=== PATIENT | male | born 1970 | race Caucasian/White ===

== ENCOUNTER 2018-07-10 18:48 | Emergency (ER) | payer MEDICAID ==
[~2018-07-10] VITALS: Ht 170.2 cm; Wt 80.0 kg
[~2018-07-10 18:48] MED LIST: ATEN-169 PO; BISA-155 PO; LISI-600 PO; POLY119P2 PO
[2018-07-10] MEDS ORDERED: acetaminophen 325mg tablet PO ONE (20:30)
[2018-07-10] MEDS ORDERED: azithromycin 250mg tablet PO ONE (22:00)
[2018-07-10] MEDS ORDERED: AZIT-63 PO (22:07)
[2018-07-10] MEDS ORDERED: IBUP-1984 PO (22:07)
[2018-07-10 22:14] VITALS: BP 165/99
== END 2018-07-10 22:15 | disposition home or self-care (01) ==
LOC: ER 18:49
DX: J18.9 Pneumonia, unspecified organism (principal); I10 Essential (primary) hypertension; Z86.14 Personal history of Methicillin resistant Staphylococcus aureus infection; F12.90 Cannabis use, unspecified, uncomplicated; Z79.899 Other long term (current) drug therapy; Z56.0 Unemployment, unspecified; Z60.2 Problems related to living alone
CPT/HCPCS: 71046; 87502; 87503; 99284

== ENCOUNTER 2019-01-25 11:10 | Inpatient (IN) | payer MEDICAID ==
[~2019-01-25] VITALS: Ht 170.2 cm; Wt 81.1 kg
[2019-01-25 13:09] LABS: CLARITY,URINE CLOUDY (Clear); COLOR,URINE YELLOW (Yellow); GLUCOSE, URINE 100 mg/dl (Neg); KETONES,URINE NEGATIVE (Neg); LEUKOCYTE ESTERASE ,URINE NEGATIVE (Neg); NITRITES, URINE NEGATIVE (Neg); OCCULT BLOOD,URINE LARGE (Neg); PROTEIN,URINE >=300 mg/dl (Neg); UROBILINOGEN,URINE 0.2 E.U/dL (0.2-1.0)
[2019-01-25 13:10] LABS: UA COLLECTION TYPE CLN CATCH MIDSTREAM
[2019-01-25 13:21] LABS: FINE GRANULAR CAST 0-3 /LPF (NEGATIVE)
[2019-01-25 13:22] LABS: RBC,URINE TNTC /HPF (0-2); WBC,URINE 0-4 /HPF (0-4)
[2019-01-25 13:23] LABS: BACTERIA,URINE 1+ /HPF (Neg); SQUAMOUS EPITHELIAL CELL,UR FEW /LPF (FEW)
[2019-01-25] MEDS ORDERED: normal saline 1000ML IV soln IVB ONE ×2 (14:05→16:20)
[2019-01-25] MEDS ORDERED: LORazepam 2 mg/ml vial IV ONE (14:05)
[2019-01-25] MEDS: nitroGLYCERIN 0.4mg SUBLingual tab SL PRN ×3 (14:17→14:35)
[2019-01-25 14:27] LABS: BASOPHILS % (AUTO) 0.6 % (0-1); EOSINOPHILS # (AUTO) 0.1 X10'3 (0-0.9); EOSINOPHILS % (AUTO) 1.3 % (0-6); HEMATOCRIT 38.5 % (42.0-52.0); HEMOGLOBIN 13.3 g/dl (14.0-17.9); LYMPHOCYTES # (AUTO) 0.8 X10'3 (1.1-4.8); LYMPHOCYTES % (AUTO) 10.9 % (21-51); MEAN CORPUSCULAR HEMOGLOBIN 28.8 PG (27.0-31.0); MEAN CORPUSCULAR HGB CONC 34.6 g/dL (33.0-36.5); MEAN CORPUSCULAR VOLUME 83.3 FL (78-98); MONOCYTES # (AUTO) 0.5 X10'3 (0-0.9); MONOCYTES % (AUTO) 6.4 % (2-12); NEUTROPHILS # (AUTO) 5.8 X10'3 (1.8-7.7); NEUTROPHILS % (AUTO) 80.8 % (42-75); PLATELET COUNT 203 X10'3 (140-440); RED BLOOD COUNT 4.62 X10'6 (4.70-6.10); RED CELL DISTRIBUTION WIDTH 15.4 % (11.5-14.5); WHITE BLOOD COUNT 7.2 X10'3 (4.5-11.0)
[2019-01-25 14:38] LABS: ALANINE AMINOTRANSFERASE 31 U/L (12-78); ALBUMIN 3.5 G/DL (3.4-5.0); ALBUMIN/GLOBULIN RATIO 0.9 (1.1-1.5); ALKALINE PHOSPHATASE 26 IU/L (46-116); ANION GAP 9 (8-16); ASPARTATE AMINO TRANSFERASE 28 U/L (10-37); BILIRUBIN,TOTAL 0.6 MG/DL (0.1-1.0); BLOOD UREA NITROGEN 43 MG/DL (7-18); BUN/CREATININE RATIO 15.1 (5.4-32.0); CHLORIDE 100 MMOL/L (99-107); CREATININE 2.85 MG/DL (0.60-1.10); GLUCOSE 143 MG/DL (70-104); LIPASE 373 U/L (73-393); POTASSIUM 3.5 MMOL/L (3.5-5.1); SODIUM 136 MMOL/L (135-145); TOTAL CARBON DIOXIDE 27.2 MMOL/L (24-32); TOTAL PROTEIN 7.2 G/DL (6.4-8.2); eGFR 24 ML/MIN
[2019-01-25] MEDS ORDERED: iohexol 350MG/ML 100ml bottle IV ONE (15:31)
[2019-01-25] MEDS ORDERED: labetalol 20mg/4ml (5mg/ml) syringe IV PRN (16:05)
[2019-01-25] MEDS ORDERED: acetaminophen 325mg tablet PO ONE (17:35)
[2019-01-25] MEDS ORDERED: NO HOME MEDS (17:38)
[2019-01-25] MEDS ORDERED: magnesium 4gm in 100ml NS 100 ML IV PRN (17:45)
[2019-01-25] MEDS ORDERED: potassium CL 10mEq/100ml bag 100 ML IV PRN ×2 (17:45)
[2019-01-25] MEDS ORDERED: magnesium Cl slow-release 64mg tablet PO PRN (17:45)
[2019-01-25] MEDS ORDERED: magnesium 2GM in 50ml NS 50 ML IV PRN (17:45)
[2019-01-25] MEDS ORDERED: HYDROcodone/acetaminophen 5mg/325mg tablet PO PRN (17:45)
[2019-01-25] MEDS ORDERED: morphine 2 MG/ML inj. syringe IV PRN ×2 (17:45)
[2019-01-25] MEDS ORDERED: ondansetron/PF 4mg/2ml inj IV PRN (17:45)
[2019-01-25] MEDS ORDERED: magnesium hydroxide 30ml (MOM) UD suspension PO PRN (17:45)
[2019-01-25] MEDS ORDERED: potassium Cl 20 mEq SR tablet PO PRN (17:45)
[2019-01-25] MEDS ORDERED: mag hydrox/Alum hydrox/simeth 30ml oral suspension PO PRN (17:45)
[2019-01-25] MEDS ORDERED: acetaminophen 325mg tablet PO PRN ×2 (17:45)
[2019-01-25] MEDS: normal saline 1000ml 1,000 ML IV SCH (18:57)
[2019-01-25] MEDS ORDERED: hyDRALAzine 10mg tablet PO PRN (19:55)
[2019-01-25] MEDS ORDERED: amLODIPine 5mg tablet PO ONE (19:55)
[2019-01-25 20:00] VITALS: BP 230/160
--- NOTE | 2019-01-25 20:00 | NUR ---
Patient in room PCU 3014. I have received report from Jossue BRIGGS and had the opportunity to ask questions and assume patient care.
[2019-01-25] MEDS: metoprolol tartrate 25mg tablet PO SCH (20:25)
[2019-01-25] MEDS: heparin, porcine 5000 units/ml vial SQ SCH (20:26)
--- NOTE | 2019-01-25 22:36 | NUR ---
pt Bp is 232/123 and still on the 200s since [address]. contacted Dr. Tompkins, he said he will put order in
[2019-01-25] MEDS: hydrALAZINE 20mg/ml inj. IV PRN (22:55)
[2019-01-25 23:00] VITALS: BP 223/139
[2019-01-25] MEDS: prazosin 5mg capsule PO SCH (23:30)
[2019-01-26] VITALS (8 sets, daily range): BP systolic 130–186; BP diastolic 69–113
[2019-01-26] MEDS: cloNIDine 0.1 mg tablet PO SCH ×4 (00:07→20:30)
[2019-01-26] MEDS: HYDROcodone/acetaminophen 10/325mg tab PO PRN ×3 (00:13→17:35)
[2019-01-26 00:36] LABS: SODIUM,URINE RANDOM 70 MEQ/L; URINE AMPHETAMINE SCREEN POSITIVE (Neg); URINE BARBITUATE SCREEN NEGATIVE (Neg); URINE BENZODIAZEPINES SCREEN NEGATIVE (Neg); URINE CANNABINOID SCREEN NEGATIVE (Neg); URINE COCAINE SCREEN NEGATIVE (Neg); URINE METHADONE SCREEN NEGATIVE (Neg); URINE OPIATE SCREEN NEGATIVE (Neg); URINE PHENCYCLIDINE SCREEN NEGATIVE (Neg)
[2019-01-26 00:42] LABS: TOTAL PROTEIN,URINE RANDOM 294.4 MG/DL
[2019-01-26 00:55] LABS: OSMOLALITY UA 408 MOSM/K (50-1400)
[2019-01-26] MEDS: normal saline 1000ml 1,000 ML IV SCH ×2 (03:42→17:17)
--- NOTE | 2019-01-26 06:00 | NUR ---
Patient in room PCU 3014. I have received report from Gala BRIGGS and had the opportunity to ask questions and assume patient care.
[2019-01-26 06:08] LABS: BASOPHILS % (AUTO) 0.2 % (0-1); EOSINOPHILS # (AUTO) 0.1 X10'3 (0-0.9); HEMATOCRIT 32.2 % (42.0-52.0); HEMOGLOBIN 11.3 g/dl (14.0-17.9); LYMPHOCYTES # (AUTO) 0.8 X10'3 (1.1-4.8); LYMPHOCYTES % (AUTO) 8.2 % (21-51); MEAN CORPUSCULAR HEMOGLOBIN 29.2 PG (27.0-31.0); MEAN CORPUSCULAR HGB CONC 35.1 g/dL (33.0-36.5); MEAN CORPUSCULAR VOLUME 83.1 FL (78-98); MEAN PLATELET VOLUME 7.5 FL (7.4-10.4); MONOCYTES # (AUTO) 0.5 X10'3 (0-0.9); NEUTROPHILS # (AUTO) 8.2 X10'3 (1.8-7.7); NEUTROPHILS % (AUTO) 85.6 % (42-75); PLATELET COUNT 204 X10'3 (140-440); RED BLOOD COUNT 3.88 X10'6 (4.70-6.10); RED CELL DISTRIBUTION WIDTH 15.5 % (11.5-14.5); WHITE BLOOD COUNT 9.5 X10'3 (4.5-11.0)
--- NOTE | 2019-01-26 06:15 | NUR ---
Problems reprioritized. Patient report given, questions answered & plan of care reviewed with Fortunato BRIGGS.
[2019-01-26 06:34] LABS: ANION GAP 11 (8-16); BLOOD UREA NITROGEN 43 MG/DL (7-18); BUN/CREATININE RATIO 16.9 (5.4-32.0); CALCIUM 7.9 MG/DL (8.5-10.1); CHLORIDE 103 MMOL/L (99-107); CREATININE 2.54 MG/DL (0.60-1.10); GLUCOSE 99 MG/DL (70-104); MAGNESIUM 1.9 MG/DL (1.5-2.4); POTASSIUM 3.2 MMOL/L (3.5-5.1); SODIUM 137 MMOL/L (135-145); eGFR 27 ML/MIN
[2019-01-26] MEDS: amLODIPine 5mg tablet PO SCH (07:40)
[2019-01-26] MEDS: potassium Cl 20 mEq SR tablet PO PRN ×3 (07:40→20:30)
[2019-01-26] MEDS: prazosin 5mg capsule PO SCH ×2 (07:40→20:22)
[2019-01-26] MEDS: metoprolol tartrate 25mg tablet PO SCH ×2 (07:41→20:31)
[2019-01-26] MEDS: heparin, porcine 5000 units/ml vial SQ SCH ×2 (07:42→20:22)
[2019-01-26] MEDS: K and/or MAG REPLACEMENT MC SCH (07:46)
--- NOTE | 2019-01-26 18:00 | NUR ---
Problems reprioritized. Patient report given, questions answered & plan of care reviewed with Marielle BRIGGS.
[2019-01-27] MEDS: hydrALAZINE 20mg/ml inj. IV PRN (02:44)
[2019-01-27 03:00] VITALS: BP 167/100
--- NOTE | 2019-01-27 03:40 | NUR ---
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 He is reporting disorientation and feelings of being "lost." Anxiety medication may be needed. LUIS Palomares [id number] Addendum: 01/27/19 at 0352 by Yahaira Weaver RN MD ppao roche
[2019-01-27] MEDS ORDERED: LORazepam 2 mg/ml vial IV PRN (03:45)
[2019-01-27] MEDS ORDERED: LORazepam 1 MG tablet PO PRN (03:45)
[2019-01-27 05:33] LABS: ALBUMIN 2.8 G/DL (3.4-5.0); ANION GAP 11 (8-16); BLOOD UREA NITROGEN 36 MG/DL (7-18); BUN/CREATININE RATIO 14.1 (5.4-32.0); CHLORIDE 105 MMOL/L (99-107); CREATININE 2.55 MG/DL (0.60-1.10); GLUCOSE 115 MG/DL (70-104); MAGNESIUM 1.8 MG/DL (1.5-2.4); POTASSIUM 3.8 MMOL/L (3.5-5.1); SODIUM 137 MMOL/L (135-145); TOTAL CARBON DIOXIDE 21.1 MMOL/L (24-32); eGFR 27 ML/MIN
[2019-01-27 06:00] VITALS: BP 165/97
--- NOTE | 2019-01-27 06:00 | NUR ---
Patient in room PCU 3014. I have received report from Marielle BRIGGS and had the opportunity to ask questions and assume patient care.
--- NOTE | 2019-01-27 06:03 | NUR ---
Problems reprioritized. Patient report given, questions answered & plan of care reviewed with BRIGITTE Farris.
[2019-01-27] MEDS: normal saline 1000ml 1,000 ML IV SCH (06:45)
[2019-01-27 07:00] LABS: BASOPHILS % (AUTO) 0.3 % (0-1); EOSINOPHILS # (AUTO) 0.1 X10'3 (0-0.9); HEMATOCRIT 29.4 % (42.0-52.0); HEMOGLOBIN 10.3 g/dl (14.0-17.9); LYMPHOCYTES # (AUTO) 0.8 X10'3 (1.1-4.8); LYMPHOCYTES % (AUTO) 11.7 % (21-51); MEAN CORPUSCULAR HEMOGLOBIN 29.1 PG (27.0-31.0); MEAN CORPUSCULAR VOLUME 83.1 FL (78-98); MEAN PLATELET VOLUME 7.9 FL (7.4-10.4); MONOCYTES # (AUTO) 0.4 X10'3 (0-0.9); MONOCYTES % (AUTO) 6.1 % (2-12); NEUTROPHILS # (AUTO) 5.3 X10'3 (1.8-7.7); NEUTROPHILS % (AUTO) 80.9 % (42-75); PLATELET COUNT 177 X10'3 (140-440); RED BLOOD COUNT 3.53 X10'6 (4.70-6.10); WHITE BLOOD COUNT 6.5 X10'3 (4.5-11.0)
[2019-01-27] MEDS: K and/or MAG REPLACEMENT MC SCH (08:00)
[2019-01-27] MEDS: amLODIPine 5mg tablet PO SCH (08:21)
[2019-01-27] MEDS: prazosin 5mg capsule PO SCH (08:22)
[2019-01-27] MEDS: cloNIDine 0.1 mg tablet PO SCH (08:22)
[2019-01-27] MEDS: metoprolol tartrate 25mg tablet PO SCH (08:23)
[2019-01-27] MEDS: heparin, porcine 5000 units/ml vial SQ SCH (08:23)
[2019-01-27 10:04] VITALS: BP 122/78
[2019-01-27] MEDS ORDERED: METO25TA6 PO (10:10)
[2019-01-27] MEDS ORDERED: PRAZ5CAP2 PO (10:10)
[2019-01-27] MEDS ORDERED: NOR5T PO (10:10)
[2019-01-27] MEDS ORDERED: CLON0.1T20 PO (10:10)
--- NOTE | 2019-01-27 11:04 | NUR ---
Patient discharged to home stable. Discharge instructions given verbally and written. Patient verbalized understanding. All personal belongings returned to patient. Tele box removed and returned to manager telemetry room. Prescriptions phoned to [facility] on [address] in [place], [place]. Patient awaiting ride home.
--- NOTE | 2019-01-27 11:43 | NUR ---
Patient unable to reach anyone for ride home. Patient given bus passes for transportation home. PIV removed canula intact. Patient wheeled out via w/c by staff to go home via bus.
== END 2019-01-27 11:42 | disposition home or self-care (01) | DRG 469 ==
LOC: ER 13:37 → PCU 3S 17:42
PROVIDERS: ADMIT Hospitalist; ATTEND Hospitalist
DX: N17.9 Acute kidney failure, unspecified (principal); F17.210 Nicotine dependence, cigarettes, uncomplicated; I16.0 Hypertensive urgency; R31.9 Hematuria, unspecified; N18.9 Chronic kidney disease, unspecified; I25.10 Atherosclerotic heart disease of native coronary artery without angina pectoris; I12.9 Hypertensive chronic kidney disease with stage 1 through stage 4 chronic kidney disease, or unspecified chronic kidney disease; Z90.49 Acquired absence of other specified parts of digestive tract; Z82.49 Family history of ischemic heart disease and other diseases of the circulatory system; Z86.14 Personal history of Methicillin resistant Staphylococcus aureus infection; Z87.442 Personal history of urinary calculi
CPT/HCPCS: 36415; 71250; 74176; 80048; 80053; 80305; 81001; 82570; 83690; 83735; 83935; 84156; 84300; 85025; 87081; 93306; 96361; 96374; 96375; 99285; G0378; J0360; J1644; J2060; J2270; J3490; J7030; Q9967

== ENCOUNTER 2019-04-23 11:02 | Inpatient (IN) | payer MEDICAID ==
[2019-04-23] VITALS (9 sets, daily range): BP systolic 127–152; BP diastolic 67–94
[~2019-04-23] VITALS: Ht 170.2 cm; Wt 81.0 kg
[~2019-04-23 11:02] MED LIST changes: -ATEN-169 PO; -BISA-155 PO; +CLON0.1T20 PO; -LISI-600 PO; +METO25TA6 PO; +NOR5T PO; -POLY119P2 PO; +PRAZ5CAP2 PO
--- NOTE | 2019-04-23 11:43 | NUR ---
DR VELARDE NOTIFIED OF PT'S HYPERTENSION.
[2019-04-23] MEDS ORDERED: AMLO10TA PO (12:05)
[2019-04-23] MEDS ORDERED: PRAZ5CAP2 PO (12:05)
[2019-04-23] MEDS ORDERED: CLON0.1T PO ×2 (12:05→13:18)
[2019-04-23] MEDS ORDERED: METO-395 PO (12:05)
[2019-04-23] MEDS ORDERED: hydrALAZINE 20mg/ml inj. IV ONE ×2 (12:05→12:45)
--- NOTE | 2019-04-23 12:19 | NUR ---
PT TO CT VIA GIDEON, BY PLANT OPERATIONS WORKER EMMIE.
[2019-04-23 12:24] LABS: BASOPHILS % (AUTO) 0.6 % (0-1); EOSINOPHILS # (AUTO) 0.1 X10'3 (0-0.9); EOSINOPHILS % (AUTO) 1.6 % (0-6); HEMATOCRIT 37.4 % (42.0-52.0); LYMPHOCYTES % (AUTO) 15.4 % (21-51); MEAN CORPUSCULAR HEMOGLOBIN 28.2 PG (27.0-31.0); MEAN CORPUSCULAR HGB CONC 34.6 g/dL (33.0-36.5); MEAN CORPUSCULAR VOLUME 81.4 FL (78-98); MEAN PLATELET VOLUME 7.1 FL (7.4-10.4); MONOCYTES # (AUTO) 0.4 X10'3 (0-0.9); MONOCYTES % (AUTO) 6.6 % (2-12); NEUTROPHILS # (AUTO) 4.9 X10'3 (1.8-7.7); NEUTROPHILS % (AUTO) 75.8 % (42-75); PLATELET COUNT 195 X10'3 (140-440); RED BLOOD COUNT 4.59 X10'6 (4.70-6.10); RED CELL DISTRIBUTION WIDTH 15.8 % (11.5-14.5); WHITE BLOOD COUNT 6.5 X10'3 (4.5-11.0)
--- NOTE | 2019-04-23 12:33 | NUR ---
PT BACK FROM CT
[2019-04-23 12:35] LABS: ALANINE AMINOTRANSFERASE 35 U/L (12-78); ALBUMIN 3.6 G/DL (3.4-5.0); ALBUMIN/GLOBULIN RATIO 0.9 (1.1-1.5); ALKALINE PHOSPHATASE 32 IU/L (46-116); ANION GAP 12 (8-16); ASPARTATE AMINO TRANSFERASE 30 U/L (10-37); BILIRUBIN,TOTAL 0.5 MG/DL (0.1-1.0); BLOOD UREA NITROGEN 61 MG/DL (7-18); BUN/CREATININE RATIO 17.4 (5.4-32.0); CALCIUM 9.3 MG/DL (8.5-10.1); CHLORIDE 103 MMOL/L (99-107); GLUCOSE 86 MG/DL (70-104); POTASSIUM 4.4 MMOL/L (3.5-5.1); SODIUM 140 MMOL/L (135-145); TOTAL CARBON DIOXIDE 24.9 MMOL/L (24-32); TOTAL PROTEIN 7.5 G/DL (6.4-8.2); eGFR 19 ML/MIN
[2019-04-23] MEDS ORDERED: acetaminophen 325mg tablet PO ONE (12:55)
--- NOTE | 2019-04-23 13:11 | NUR ---
PT GIVEN 2 ICE PACKS FOR PT'S NECK. PT R EPORTS HEADACHE 02/24.
[2019-04-23] MEDS ORDERED: AMLO5TAB PO (13:18)
[2019-04-23] MEDS ORDERED: PRAZ5CAP PO (13:19)
[2019-04-23] MEDS ORDERED: METO25TA6 PO (13:19)
[2019-04-23] MEDS ORDERED: niCARdipine I.V. 50 MG in normal saline 250ml IV soln 230 ML IV SCH ×2 (13:20→13:25)
--- NOTE | 2019-04-23 13:22 | NUR ---
PT CO NOT FEELING WELL, PER DR MADRID STAT EKG.
[2019-04-23] MEDS ORDERED: morphine 2 MG/ML inj. syringe IV PRN (13:25)
[2019-04-23] MEDS ORDERED: magnesium hydroxide 30ml (MOM) UD suspension PO PRN (13:25)
[2019-04-23] MEDS ORDERED: potassium CL 10mEq/100ml bag 100 ML IV PRN ×2 (13:25)
[2019-04-23] MEDS ORDERED: morphine 4 MG/ML inj SYRINge IV PRN (13:25)
[2019-04-23] MEDS ORDERED: HYDROcodone/acetaminophen 10/325mg tab PO PRN (13:25)
[2019-04-23] MEDS ORDERED: ondansetron/PF 4mg/2ml inj IV PRN (13:25)
[2019-04-23] MEDS ORDERED: potassium Cl 20 mEq SR tablet PO PRN ×2 (13:25)
[2019-04-23] MEDS ORDERED: acetaminophen 325mg tablet PO PRN ×2 (13:25)
[2019-04-23] MEDS ORDERED: niCARDipine-NS 40mg/200ml IVPB 250 ML IV SCH (13:30)
[2019-04-23] MEDS: niCARDipine-NS 40mg/200ml IVPB 200 ML IV SCH ×2 (13:38→17:58)
[2019-04-23 14:48] LABS: CLARITY,URINE CLEAR (Clear); COLOR,URINE YELLOW (Yellow); GLUCOSE, URINE NEGATIVE (Neg); KETONES,URINE NEGATIVE (Neg); LEUKOCYTE ESTERASE ,URINE NEGATIVE (Neg); NITRITES, URINE NEGATIVE (Neg); OCCULT BLOOD,URINE NEGATIVE (Neg); PROTEIN,URINE >=300 mg/dl (Neg); UA COLLECTION TYPE URINAL; UROBILINOGEN,URINE 0.2 E.U/dL (0.2-1.0)
[2019-04-23 14:55] LABS: COARSE GRANULAR CAST 0-3 /LPF (NEGATIVE); FINE GRANULAR CAST 0-3 /LPF (NEGATIVE); HYALINE CASTS 0-3 /LPF (NEGATIVE); MUCUS STRANDS NONE SEEN /LPF (Neg); RENAL CELLS, URINE FEW /HPF; SQUAMOUS EPITHELIAL CELL,UR FEW /LPF (FEW); TRANSITIONAL EPI CELLS,URINE FEW /HPF
[2019-04-23 14:56] LABS: TOTAL PROTEIN,URINE RANDOM 495.1 MG/DL
[2019-04-23 14:57] LABS: BACTERIA,URINE NONE SEEN /HPF (Neg); RBC,URINE 0-2 /HPF (0-2); WBC,URINE 0-4 /HPF (0-4)
[2019-04-23] MEDS ORDERED: aspirin 81mg tab.chew PO ONE (15:15)
[2019-04-23 15:48] LABS: UA EOSINOPHILS NO EOS /HPF
[2019-04-23] MEDS: amLODIPine 5mg tablet PO SCH (17:17)
--- NOTE | 2019-04-23 18:31 | NUR ---
Patient in room ICU 2038. I have received report from Ame May RN and had the opportunity to ask questions and assume patient care.
[2019-04-23] MEDS ORDERED: heparin, porcine 5000 units/ml vial SQ SCH (20:00)
[2019-04-23] MEDS: metoprolol tartrate 25mg tablet PO SCH (20:10)
[2019-04-23] MEDS: cloNIDine 0.1 mg tablet PO SCH (20:10)
[2019-04-23] MEDS ORDERED: heparin 10,000 units/1 ML INJ IV ONE (20:30)
[2019-04-23] MEDS ORDERED: nitroGLYCERIN 0.4mg SUBLingual tab SL PRN (20:40)
[2019-04-23] MEDS: heparin 25,000 UNIT/250ml bag 250 ML IV SCH (21:10)
[2019-04-23] MEDS: prazosin 5mg capsule PO SCH (21:53)
[2019-04-24] VITALS (23 sets, daily range): BP systolic 120–182; BP diastolic 74–115
[2019-04-24 03:26] LABS: ALANINE AMINOTRANSFERASE 36 U/L (12-78); ALBUMIN 3.2 G/DL (3.4-5.0); ALBUMIN/GLOBULIN RATIO 0.9 (1.1-1.5); ALKALINE PHOSPHATASE 21 IU/L (46-116); ANION GAP 15 (8-16); ASPARTATE AMINO TRANSFERASE 50 U/L (10-37); BILIRUBIN,TOTAL 0.5 MG/DL (0.1-1.0); BLOOD UREA NITROGEN 63 MG/DL (7-18); BUN/CREATININE RATIO 16.7 (5.4-32.0); CALCIUM 8.6 MG/DL (8.5-10.1); CHLORIDE 104 MMOL/L (99-107); CREATININE 3.78 MG/DL (0.60-1.10); GLUCOSE 121 MG/DL (70-104); POTASSIUM 3.9 MMOL/L (3.5-5.1); SODIUM 141 MMOL/L (135-145); TOTAL CARBON DIOXIDE 21.9 MMOL/L (24-32); TOTAL PROTEIN 6.6 G/DL (6.4-8.2); eGFR 17 ML/MIN
[2019-04-24 04:13] LABS: BASOPHILS % (AUTO) 0.3 % (0-1); EOSINOPHILS # (AUTO) 0.1 X10'3 (0-0.9); EOSINOPHILS % (AUTO) 0.9 % (0-6); HEMATOCRIT 34.3 % (42.0-52.0); LYMPHOCYTES # (AUTO) 0.9 X10'3 (1.1-4.8); LYMPHOCYTES % (AUTO) 14.2 % (21-51); MEAN CORPUSCULAR HEMOGLOBIN 28.4 PG (27.0-31.0); MEAN CORPUSCULAR VOLUME 81.2 FL (78-98); MEAN PLATELET VOLUME 7.6 FL (7.4-10.4); MONOCYTES # (AUTO) 0.3 X10'3 (0-0.9); NEUTROPHILS # (AUTO) 4.9 X10'3 (1.8-7.7); NEUTROPHILS % (AUTO) 79.6 % (42-75); PLATELET COUNT 172 X10'3 (140-440); RED BLOOD COUNT 4.23 X10'6 (4.70-6.10); RED CELL DISTRIBUTION WIDTH 15.5 % (11.5-14.5); WHITE BLOOD COUNT 6.1 X10'3 (4.5-11.0)
[2019-04-24 04:19] LABS: ALANINE AMINOTRANSFERASE 36 U/L (12-78); ALBUMIN 3.2 G/DL (3.4-5.0); ALBUMIN/GLOBULIN RATIO 0.9 (1.1-1.5); ALKALINE PHOSPHATASE 24 IU/L (46-116); ANION GAP 12 (8-16); ASPARTATE AMINO TRANSFERASE 52 U/L (10-37); BILIRUBIN,TOTAL 0.5 MG/DL (0.1-1.0); BLOOD UREA NITROGEN 63 MG/DL (7-18); BUN/CREATININE RATIO 16.4 (5.4-32.0); CALCIUM 8.7 MG/DL (8.5-10.1); CHLORIDE 104 MMOL/L (99-107); CREATININE 3.83 MG/DL (0.60-1.10); GLUCOSE 123 MG/DL (70-104); MAGNESIUM 2.2 MG/DL (1.5-2.4); SODIUM 139 MMOL/L (135-145); TOTAL CARBON DIOXIDE 23.2 MMOL/L (24-32); TOTAL PROTEIN 6.7 G/DL (6.4-8.2); eGFR 17 ML/MIN
[2019-04-24] MEDS: heparin 10,000 units/1 ML INJ IV PRN ×2 (04:31→17:04)
--- NOTE | 2019-04-24 06:10 | NUR ---
Patient in room ICU 2038. I have received report from BRIGITTE Montoya and had the opportunity to ask questions and assume patient care.
--- NOTE | 2019-04-24 06:43 | NUR ---
Problems reprioritized. Patient report given, questions answered & plan of care reviewed with Ginger Pritchard RN.
--- NOTE | 2019-04-24 06:48 | NUR ---
Patient in room ICU 2038. I have received report from BRIGITTE Montoya and had the opportunity to ask questions and assume patient care.
[2019-04-24] MEDS: aspirin 81mg tablet.DR PO SCH (07:39)
[2019-04-24] MEDS: amLODIPine 5mg tablet PO SCH (07:39)
[2019-04-24] MEDS: metoprolol tartrate 25mg tablet PO SCH (07:39)
[2019-04-24] MEDS: prazosin 5mg capsule PO SCH (07:39)
[2019-04-24] MEDS: cloNIDine 0.1 mg tablet PO SCH ×3 (07:39→18:56)
[2019-04-24] MEDS ORDERED: amLODIPine 5mg tablet PO SCH (08:00)
--- NOTE | 2019-04-24 10:00 | NUR ---
PTT 54 *Therapeutic Range* No change to heparin drip at this time. Addendum: 04/24/19 at 1222 by Sapna Juares RN PTT is 52; not 54 (Typo)
[2019-04-24 10:31] LABS: TROPONIN I 6.94 NG/ML (0.0-0.05)
--- NOTE | 2019-04-24 10:45 | NUR ---
Most recent Troponin 6.94, MD aware. Per Dr. Ac, patients SBP needs to stay between 160-180. New orders in place.
[2019-04-24 11:02] LABS: CHOL/HDL RATIO 4.3 (0.00-4.99); CHOLESTEROL 213 MG/DL (0-200); HDL CHOLESTEROL 49 MG/DL (35-60); LDL CHOLESTEROL 143 MG/DL (50-100); TRIGLYCERIDES 122 MG/DL (20-135)
--- NOTE | 2019-04-24 11:32 | NUR ---
Spoke with pharmacy. Parameters of Cardene were clarified and fixed in eMAR.
[2019-04-24] MEDS: niCARDipine-NS 40mg/200ml IVPB 200 ML IV SCH (13:25)
[2019-04-24] MEDS: heparin 25,000 UNIT/250ml bag 250 ML IV SCH ×3 (17:09→19:00)
--- NOTE | 2019-04-24 17:36 | NUR ---
IV spreadsheet, Heparin Drip @ 1709 is an invalid entry. 10ml/hr was never administered. Spoke with pharmacy, they discontinued medication order and re-entered the same medication as new to bypass error on IV spreadsheet. Patient received 3500 unit bolus, per protocol and is receiving 1400 unit/hr
--- NOTE | 2019-04-24 18:14 | NUR ---
Problems reprioritized. Patient report given, questions answered & plan of care reviewed with BRIGITTE De Los Santos.
--- NOTE | 2019-04-24 18:32 | NUR ---
Patient in room ICU 2038. I have received report from Ginger Pritchard RN and had the opportunity to ask questions and assume patient care.
--- NOTE | 2019-04-24 23:47 | NUR ---
PTT in therapeutic range heparin is currently running at 1400 u/hr and labs drawn at 2254 were 46 PTT. will continue at current rate and place order for re-draw per protocol for 6 hours.
[2019-04-25] VITALS (24 sets, daily range): BP systolic 140–194; BP diastolic 81–123
--- NOTE | 2019-04-25 01:24 | NUR ---
offered pt bed bath, pt refused.
[2019-04-25] MEDS: niCARDipine-NS 40mg/200ml IVPB 200 ML IV SCH ×4 (05:25→16:24)
[2019-04-25 06:37] LABS: BASOPHILS % (AUTO) 0.3 % (0-1); EOSINOPHILS # (AUTO) 0.1 X10'3 (0-0.9); EOSINOPHILS % (AUTO) 2.1 % (0-6); HEMATOCRIT 34.5 % (42.0-52.0); LYMPHOCYTES # (AUTO) 1.2 X10'3 (1.1-4.8); LYMPHOCYTES % (AUTO) 23.7 % (21-51); MEAN CORPUSCULAR HEMOGLOBIN 28.3 PG (27.0-31.0); MEAN CORPUSCULAR HGB CONC 34.8 g/dL (33.0-36.5); MEAN CORPUSCULAR VOLUME 81.2 FL (78-98); MEAN PLATELET VOLUME 7.5 FL (7.4-10.4); MONOCYTES # (AUTO) 0.4 X10'3 (0-0.9); MONOCYTES % (AUTO) 7.8 % (2-12); NEUTROPHILS # (AUTO) 3.4 X10'3 (1.8-7.7); NEUTROPHILS % (AUTO) 66.1 % (42-75); PLATELET COUNT 202 X10'3 (140-440); RED BLOOD COUNT 4.25 X10'6 (4.70-6.10); RED CELL DISTRIBUTION WIDTH 15.4 % (11.5-14.5); WHITE BLOOD COUNT 5.1 X10'3 (4.5-11.0)
--- NOTE | 2019-04-25 06:48 | NUR ---
Problems reprioritized. Patient report given, questions answered & plan of care reviewed with Jyotsna Gilliam RN.
[2019-04-25 06:56] LABS: ALANINE AMINOTRANSFERASE 37 U/L (12-78); ALBUMIN 3.2 G/DL (3.4-5.0); ALBUMIN/GLOBULIN RATIO 0.8 (1.1-1.5); ALKALINE PHOSPHATASE 23 IU/L (46-116); ANION GAP 12 (8-16); ASPARTATE AMINO TRANSFERASE 47 U/L (10-37); BILIRUBIN,TOTAL 0.3 MG/DL (0.1-1.0); BLOOD UREA NITROGEN 60 MG/DL (7-18); BUN/CREATININE RATIO 16.3 (5.4-32.0); CALCIUM 9.2 MG/DL (8.5-10.1); CHLORIDE 101 MMOL/L (99-107); CREATININE 3.67 MG/DL (0.60-1.10); GLUCOSE 91 MG/DL (70-104); MAGNESIUM 2.5 MG/DL (1.5-2.4); POTASSIUM 3.6 MMOL/L (3.5-5.1); SODIUM 137 MMOL/L (135-145); TOTAL CARBON DIOXIDE 24.5 MMOL/L (24-32); eGFR 18 ML/MIN
[2019-04-25 07:05] LABS: TROPONIN I 4.65 NG/ML (0.0-0.05)
[2019-04-25] MEDS: atorvastatin 20mg tablet PO SCH (07:51)
[2019-04-25] MEDS: aspirin 81mg tablet.DR PO SCH (07:53)
[2019-04-25] MEDS: cloNIDine 0.1 mg tablet PO SCH ×3 (07:53→19:39)
[2019-04-25] MEDS ORDERED: lisinopril 10 MG tablet PO ONE (12:45)
--- NOTE | 2019-04-25 14:09 | NUR ---
Reviewed orders and POC with Lizbet and he requested that the heparin drip be stopped and start the sub q 5000 units daily instead, also started a loading one time dose of 300mg plavix starting this evening and then a daily 75 mg dose from there. He also requested the patient start a coreg dose of 6.25mg daily.
[2019-04-25 14:31] LABS: RHEUM FACTOR QUAL REFLEX TITER NEGATIVE (Neg)
[2019-04-25 15:37] LABS: HIV ANTIBODY 1&2 RAPID NON-REACTIVE (Neg)
[2019-04-25] MEDS ORDERED: clopidogrel 300mg tablet PO ONE (19:00)
[2019-04-25] MEDS: heparin, porcine 5000 units/ml vial SQ SCH (19:40)
[2019-04-25] MEDS ORDERED: carVEDilol 3.125mg tablet PO SCH (20:00)
[2019-04-25] MEDS ORDERED: carvedilol 6.25mg tablet PO ONE (20:00)
[2019-04-25] MEDS ORDERED: carVEDilol 12.5mg tablet PO SCH (20:00)
[2019-04-26] VITALS (19 sets, daily range): BP systolic 123–166; BP diastolic 79–109
--- NOTE | 2019-04-26 03:14 | NUR ---
Patient reported 5/10 chest pain, relieved with one nitro tab. 12 lead EKG done, no change from previous. Vitals WNL
[2019-04-26 05:12] LABS: BASOPHILS % (AUTO) 0.2 % (0-1); EOSINOPHILS # (AUTO) 0.1 X10'3 (0-0.9); EOSINOPHILS % (AUTO) 1.7 % (0-6); HEMATOCRIT 31.3 % (42.0-52.0); HEMOGLOBIN 10.7 g/dl (14.0-17.9); LYMPHOCYTES # (AUTO) 0.8 X10'3 (1.1-4.8); LYMPHOCYTES % (AUTO) 17.7 % (21-51); MEAN CORPUSCULAR HEMOGLOBIN 28.3 PG (27.0-31.0); MEAN CORPUSCULAR HGB CONC 34.3 g/dL (33.0-36.5); MEAN CORPUSCULAR VOLUME 82.6 FL (78-98); MEAN PLATELET VOLUME 7.2 FL (7.4-10.4); MONOCYTES # (AUTO) 0.4 X10'3 (0-0.9); MONOCYTES % (AUTO) 8.5 % (2-12); NEUTROPHILS # (AUTO) 3.2 X10'3 (1.8-7.7); NEUTROPHILS % (AUTO) 71.9 % (42-75); PLATELET COUNT 191 X10'3 (140-440); RED BLOOD COUNT 3.79 X10'6 (4.70-6.10); RED CELL DISTRIBUTION WIDTH 15.1 % (11.5-14.5); WHITE BLOOD COUNT 4.4 X10'3 (4.5-11.0)
[2019-04-26] MEDS: niCARDipine-NS 40mg/200ml IVPB 200 ML IV SCH (05:25)
[2019-04-26 05:34] LABS: ALANINE AMINOTRANSFERASE 30 U/L (12-78); ALBUMIN 2.9 G/DL (3.4-5.0); ALBUMIN/GLOBULIN RATIO 0.9 (1.1-1.5); ALKALINE PHOSPHATASE 21 IU/L (46-116); ANION GAP 9 (8-16); ASPARTATE AMINO TRANSFERASE 27 U/L (10-37); BILIRUBIN,TOTAL 0.3 MG/DL (0.1-1.0); BLOOD UREA NITROGEN 60 MG/DL (7-18); BUN/CREATININE RATIO 16.5 (5.4-32.0); CALCIUM 8.3 MG/DL (8.5-10.1); CHLORIDE 104 MMOL/L (99-107); CREATININE 3.63 MG/DL (0.60-1.10); GLUCOSE 102 MG/DL (70-104); MAGNESIUM 2.1 MG/DL (1.5-2.4); PHOSPHORUS 5.5 MG/DL (2.3-4.5); POTASSIUM 4.3 MMOL/L (3.5-5.1); SODIUM 138 MMOL/L (135-145); TOTAL CARBON DIOXIDE 24.8 MMOL/L (24-32); TOTAL PROTEIN 6.2 G/DL (6.4-8.2); eGFR 18 ML/MIN
--- NOTE | 2019-04-26 06:38 | NUR ---
Patient in room ICU 2038. I have received report from BRIGITTE Higuera and had the opportunity to ask questions and assume patient care.
[2019-04-26] MEDS: lisinopril 5mg tablet PO SCH (07:12)
[2019-04-26] MEDS: aspirin 81mg tablet.DR PO SCH (07:13)
[2019-04-26] MEDS: cloNIDine 0.1 mg tablet PO SCH ×2 (07:13→19:48)
[2019-04-26] MEDS: clopidogrel 75mg tablet PO SCH (07:13)
[2019-04-26] MEDS: atorvastatin 20mg tablet PO SCH (07:13)
[2019-04-26] MEDS: heparin, porcine 5000 units/ml vial SQ SCH ×2 (07:13→19:49)
[2019-04-26] MEDS ORDERED: carVEDilol 12.5mg tablet PO SCH (08:00)
[2019-04-26] MEDS ORDERED: aminophylline 250mg/10ml inj. IV PRN (13:35)
[2019-04-26] MEDS ORDERED: metoprolol tartrate 1mg/ml inj IV PRN (13:35)
[2019-04-26] MEDS ORDERED: nitroGLYCERIN 0.4mg SUBLingual tab SL PRN (13:35)
[2019-04-26] MEDS ORDERED: regadenoson 0.4mg/5ml syringe IV PRN (13:35)
--- NOTE | 2019-04-26 15:45 | NUR ---
Gave report to BRIGITTE Farris. Pt transferred to PCU with tele monitor and all belongings. Pt alert, oriented and stable for transfer. Pt walked from wheelchair to bed. Receiving RN aware of pt's arrival.
--- NOTE | 2019-04-26 15:45 | NUR ---
Patient in room ICU 2038. I have received report from Catie BRIGGS and had the opportunity to ask questions and assume patient care.
--- NOTE | 2019-04-26 16:00 | NUR ---
Received patient on unit stable, denies chest pain or any pain. VSS, per ICU nurse Catie Ac does not want to order prn BP medications. Patient oriented to room and unit. Bed low/locked, side rails up x2, call light in reach.
--- NOTE | 2019-04-26 18:00 | NUR ---
Patient in room PCU 3012. I have received report from BRIGITTE Farris and had the opportunity to ask questions and assume patient care.
--- NOTE | 2019-04-26 18:00 | NUR ---
Problems reprioritized. Patient report given, questions answered & plan of care reviewed with Rakel BRIGGS.
--- NOTE | 2019-04-26 18:02 | NUR ---
Patient in room PCU 3012. I have received report from BRIGITTE Farris and had the opportunity to ask questions and assume patient care.
[2019-04-26] MEDS: carVEDilol 3.125mg tablet PO SCH (19:48)
[2019-04-27] VITALS (11 sets, daily range): BP systolic 141–185; BP diastolic 79–113
[2019-04-27] MEDS ORDERED: amLODIPine 2.5mg tablet PO SCH (02:20)
--- NOTE | 2019-04-27 06:00 | NUR ---
Preceptee documentation: I have reviewed and agree with all interventions, assessments performed and documented by BRIGITTE Mota .
--- NOTE | 2019-04-27 06:00 | NUR ---
Patient in room PCU 3012. I have received report from Rakel BRIGGS and had the opportunity to ask questions and assume patient care.
[2019-04-27 06:02] LABS: BASOPHILS % (AUTO) 0.4 % (0-1); EOSINOPHILS # (AUTO) 0.1 X10'3 (0-0.9); EOSINOPHILS % (AUTO) 2.5 % (0-6); HEMATOCRIT 33.8 % (42.0-52.0); HEMOGLOBIN 11.6 g/dl (14.0-17.9); LYMPHOCYTES % (AUTO) 23.5 % (21-51); MEAN CORPUSCULAR HEMOGLOBIN 28.5 PG (27.0-31.0); MEAN CORPUSCULAR HGB CONC 34.4 g/dL (33.0-36.5); MEAN CORPUSCULAR VOLUME 82.8 FL (78-98); MEAN PLATELET VOLUME 7.6 FL (7.4-10.4); MONOCYTES # (AUTO) 0.3 X10'3 (0-0.9); MONOCYTES % (AUTO) 7.7 % (2-12); NEUTROPHILS # (AUTO) 2.7 X10'3 (1.8-7.7); NEUTROPHILS % (AUTO) 65.9 % (42-75); PLATELET COUNT 189 X10'3 (140-440); RED BLOOD COUNT 4.09 X10'6 (4.70-6.10); RED CELL DISTRIBUTION WIDTH 15.1 % (11.5-14.5); WHITE BLOOD COUNT 4.2 X10'3 (4.5-11.0)
--- NOTE | 2019-04-27 06:02 | NUR ---
Problems reprioritized. Patient report given, questions answered & plan of care reviewed with BRIGITTE Farris.
[2019-04-27 06:57] LABS: ALANINE AMINOTRANSFERASE 33 U/L (12-78); ALBUMIN 2.8 G/DL (3.4-5.0); ALBUMIN/GLOBULIN RATIO 0.8 (1.1-1.5); ALKALINE PHOSPHATASE 21 IU/L (46-116); ANION GAP 12 (8-16); ASPARTATE AMINO TRANSFERASE 35 U/L (10-37); BILIRUBIN,TOTAL 0.3 MG/DL (0.1-1.0); BLOOD UREA NITROGEN 62 MG/DL (7-18); BUN/CREATININE RATIO 17.6 (5.4-32.0); CALCIUM 8.5 MG/DL (8.5-10.1); CHLORIDE 103 MMOL/L (99-107); CREATININE 3.53 MG/DL (0.60-1.10); GLUCOSE 97 MG/DL (70-104); MAGNESIUM 2.3 MG/DL (1.5-2.4); PHOSPHORUS 5.5 MG/DL (2.3-4.5); POTASSIUM 4.2 MMOL/L (3.5-5.1); SODIUM 139 MMOL/L (135-145); TOTAL CARBON DIOXIDE 24.4 MMOL/L (24-32); TOTAL PROTEIN 6.2 G/DL (6.4-8.2); eGFR 19 ML/MIN
--- NOTE | 2019-04-27 07:37 | NUR ---
Due to elevated BP 163/113 per stress lab ok to give all am medications including heparin and bp meds.
[2019-04-27] MEDS: atorvastatin 20mg tablet PO SCH (07:41)
[2019-04-27] MEDS: cloNIDine 0.1 mg tablet PO SCH (07:41)
[2019-04-27] MEDS: lisinopril 5mg tablet PO SCH (07:41)
[2019-04-27] MEDS: carVEDilol 3.125mg tablet PO SCH (07:42)
[2019-04-27] MEDS: clopidogrel 75mg tablet PO SCH (07:42)
[2019-04-27] MEDS: aspirin 81mg tablet.DR PO SCH (07:42)
[2019-04-27] MEDS: heparin, porcine 5000 units/ml vial SQ SCH (07:43)
[2019-04-27 08:32] LABS: HBSAG SCREEN Negative (Negative); HEPATITIS C ANTIBODY 0.2 s/co ratio (0.0-0.9)
--- NOTE | 2019-04-27 09:10 | NUR ---
To stress lab for Jonathan
[2019-04-27 13:31] LABS: ANTINUCLEAR ANTIBODIES Negative (Negative)
[2019-04-27] MEDS ORDERED: LISI-642 PO (16:53)
[2019-04-27] MEDS ORDERED: COR3.125T PO (16:53)
[2019-04-27] MEDS ORDERED: CLOP75TA35 PO (16:53)
[2019-04-27] MEDS ORDERED: ATOR20TA66 PO (16:53)
[2019-04-27] MEDS ORDERED: ASPI-1071 PO (16:53)
[2019-04-27] MEDS ORDERED: CLON0.1T20 PO (16:53)
--- NOTE | 2019-04-27 17:35 | NUR ---
Pt eating dinner at this time. Called [employer] to arrange picker / packer for patient, they will not be able to picker / packer patient for 1 hour, okay by patient. Request one stop before destination, [facility] on [address] before [id number] [facility]. ETA for picker / packer is 183, will picker / packer patient from [facility].
--- NOTE | 2019-04-27 18:05 | NUR ---
Patient discharged stable to home. Discharge instructions given to patient verbally and written. All personal belongings returned to patient. Peripheral IV x2 removed, canula intact. Prescriptions phoned to [facility] on [facility] [facility] [address] [facility]. Patient awaiting cab ride to Pharmacy then home.
[2019-04-28 11:52] LABS: COMPLEMENT C3, SERUM 128 mg/dL (82-167); COMPLEMENT C4, SERUM 31 mg/dL (14-44)
== END 2019-04-27 18:30 | disposition home or self-care (01) | DRG 194 ==
LOC: ER 11:02 → ED HOLD 13:37 → ICU 2S 15:18 → PCU 3S 04-26 17:33
PROVIDERS: ADMIT Internal Medicine Critical Care Medicine; ATTEND Internal Medicine Critical Care Medicine
PROC: 4A02XM4 Measurement of Cardiac Total Activity, External Approach (ICD-10-PCS; principal; 2019-04-27)
PROC: 3E033HZ Introduction of Radioactive Substance into Peripheral Vein, Percutaneous Approach (ICD-10-PCS; 2019-04-27)
DX: I13.0 Hypertensive heart and chronic kidney disease with heart failure and stage 1 through stage 4 chronic kidney disease, or unspecified chronic kidney disease (principal); G93.6 Cerebral edema; N17.9 Acute kidney failure, unspecified; I16.1 Hypertensive emergency; I50.22 Chronic systolic (congestive) heart failure; F15.90 Other stimulant use, unspecified, uncomplicated; Z60.2 Problems related to living alone; F17.210 Nicotine dependence, cigarettes, uncomplicated; F12.90 Cannabis use, unspecified, uncomplicated; N18.4 Chronic kidney disease, stage 4 (severe); Z79.02 Long term (current) use of antithrombotics/antiplatelets; Z79.899 Other long term (current) drug therapy; Z82.49 Family history of ischemic heart disease and other diseases of the circulatory system; Z86.14 Personal history of Methicillin resistant Staphylococcus aureus infection; Z87.442 Personal history of urinary calculi; Z90.49 Acquired absence of other specified parts of digestive tract; Z91.14 Patient's other noncompliance with medication regimen; Z91.19 Patient's noncompliance with other medical treatment and regimen; Z71.51 Drug abuse counseling and surveillance of drug abuser; Z71.6 Tobacco abuse counseling
CPT/HCPCS: 36415; 70450; 76775; 78452; 80053; 80061; 81001; 82570; 83735; 83880; 84100; 84156; 84300; 84484; 85025; 85610; 85651; 85730; 86038; 86160; 86430; 86703; 86803; 87081; 87207; 87340; 93005; 93017; 93306; 96374; 96376; 97161; 97530; 99291; A9500; G0378; J0360; J1644; J2785; J7050

== ENCOUNTER 2019-06-01 18:29 | Emergency (ER) | payer MEDICAID ==
[~2019-06-01] VITALS: Ht 170.2 cm; Wt 81.8 kg
[~2019-06-01 18:29] MED LIST changes: +ASPI-1071 PO; +ATOR20TA66 PO; +CLON0.1T2 PO; -CLON0.1T20 PO; +CLOP75TA35 PO; +COR3.125T PO; +LISI-642 PO; -METO25TA6 PO; -NOR5T PO; -PRAZ5CAP2 PO
[2019-06-01 19:48] LABS: BASOPHILS % (AUTO) 0.4 % (0-1); EOSINOPHILS # (AUTO) 0.2 X10'3 (0-0.9); EOSINOPHILS % (AUTO) 2.4 % (0-6); HEMATOCRIT 31.6 % (42.0-52.0); HEMOGLOBIN 11.2 g/dl (14.0-17.9); LYMPHOCYTES # (AUTO) 1.3 X10'3 (1.1-4.8); LYMPHOCYTES % (AUTO) 18.5 % (21-51); MEAN CORPUSCULAR HEMOGLOBIN 28.6 PG (27.0-31.0); MEAN CORPUSCULAR HGB CONC 35.5 g/dL (33.0-36.5); MEAN CORPUSCULAR VOLUME 80.6 FL (78-98); MEAN PLATELET VOLUME 6.8 FL (7.4-10.4); MONOCYTES # (AUTO) 0.5 X10'3 (0-0.9); MONOCYTES % (AUTO) 6.6 % (2-12); NEUTROPHILS # (AUTO) 4.9 X10'3 (1.8-7.7); NEUTROPHILS % (AUTO) 72.1 % (42-75); PLATELET COUNT 230 X10'3 (140-440); RED BLOOD COUNT 3.92 X10'6 (4.70-6.10); RED CELL DISTRIBUTION WIDTH 15.3 % (11.5-14.5); WHITE BLOOD COUNT 6.9 X10'3 (4.5-11.0)
[2019-06-01 19:58] LABS: ALANINE AMINOTRANSFERASE 30 U/L (12-78); ALBUMIN 3.7 G/DL (3.4-5.0); ALKALINE PHOSPHATASE 30 IU/L (46-116); ANION GAP 8 (8-16); ASPARTATE AMINO TRANSFERASE 25 U/L (10-37); BILIRUBIN,TOTAL 0.3 MG/DL (0.1-1.0); BLOOD UREA NITROGEN 53 MG/DL (7-18); BUN/CREATININE RATIO 16.4 (5.4-32.0); CALCIUM 8.6 MG/DL (8.5-10.1); CHLORIDE 108 MMOL/L (99-107); CREATININE 3.23 MG/DL (0.60-1.10); GLUCOSE 113 MG/DL (70-104); LIPASE 914 U/L (73-393); POTASSIUM 4.4 MMOL/L (3.5-5.1); SODIUM 140 MMOL/L (135-145); TOTAL CARBON DIOXIDE 23.8 MMOL/L (24-32); TOTAL PROTEIN 7.4 G/DL (6.4-8.2); eGFR 21 ML/MIN
[2019-06-01] MEDS ORDERED: cloNIDine 0.1 mg tablet PO ONE (21:10)
[2019-06-01] MEDS ORDERED: LORazepam 1 MG tablet PO ONE (22:10)
[2019-06-01] MEDS ORDERED: morphine 4 MG/ML inj SYRINge IV ONE (22:15)
[2019-06-01] MEDS ORDERED: hydrALAZINE 25 MG tablet PO ONE (22:15)
[2019-06-02] MEDS ORDERED: hydrALAZINE 25 MG tablet PO STA (00:11)
[2019-06-02 00:19] VITALS: BP 182/102
[2019-06-02 00:44] LABS: CLARITY,URINE CLEAR (Clear); COLOR,URINE YELLOW (Yellow); GLUCOSE, URINE NEGATIVE (Neg); KETONES,URINE NEGATIVE (Neg); LEUKOCYTE ESTERASE ,URINE NEGATIVE (Neg); NITRITES, URINE NEGATIVE (Neg); OCCULT BLOOD,URINE TRACE-INTACT (Neg); PROTEIN,URINE 100 mg/dl (Neg); UROBILINOGEN,URINE 0.2 E.U/dL (0.2-1.0)
[2019-06-02 00:53] LABS: UA COLLECTION TYPE CLN CATCH MIDSTREAM
[2019-06-02 00:54] LABS: BACTERIA,URINE NONE SEEN /HPF (Neg); RBC,URINE 0-2 /HPF (0-2); SQUAMOUS EPITHELIAL CELL,UR FEW /LPF (FEW); WBC,URINE NONE SEEN /HPF (0-4)
== END 2019-06-02 00:50 | disposition home or self-care (01) ==
LOC: ER 18:29
DX: K85.90 Acute pancreatitis without necrosis or infection, unspecified (principal); I10 Essential (primary) hypertension; R10.84 Generalized abdominal pain; F12.90 Cannabis use, unspecified, uncomplicated; F15.90 Other stimulant use, unspecified, uncomplicated; Z56.0 Unemployment, unspecified; Z90.49 Acquired absence of other specified parts of digestive tract; Z87.442 Personal history of urinary calculi; Z86.14 Personal history of Methicillin resistant Staphylococcus aureus infection; Z79.82 Long term (current) use of aspirin; Z79.899 Other long term (current) drug therapy
CPT/HCPCS: 36415; 74176; 80053; 81001; 83690; 84484; 85025; 93005; 96374; 99284; J2270

== ENCOUNTER 2019-08-19 22:16 | Emergency (ER) | payer MEDICAID ==
[~2019-08-19] VITALS: Ht 170.2 cm; Wt 81.8 kg
[2019-08-19 22:24] VITALS: BP 179/95
[2019-08-19] MEDS ORDERED: HYDROcodone/acetaminophen 5mg/325mg tablet PO ONE (22:55)
[2019-08-19] MEDS ORDERED: AMOX500C2 PO (23:41)
[2019-08-19] MEDS ORDERED: ACET-3067 PO (23:41)
== END 2019-08-20 01:05 | disposition home or self-care (01) ==
LOC: ER 22:17
DX: H66.91 Otitis media, unspecified, right ear (principal); J06.9 Acute upper respiratory infection, unspecified; I10 Essential (primary) hypertension; F17.200 Nicotine dependence, unspecified, uncomplicated; F12.90 Cannabis use, unspecified, uncomplicated; Z86.14 Personal history of Methicillin resistant Staphylococcus aureus infection; Z87.442 Personal history of urinary calculi; Z60.2 Problems related to living alone; Z56.0 Unemployment, unspecified; Z90.49 Acquired absence of other specified parts of digestive tract; Z79.82 Long term (current) use of aspirin; Z79.899 Other long term (current) drug therapy
CPT/HCPCS: 36415; 71045; 87502; 87503; 93005; 99284

== ENCOUNTER 2020-03-15 18:11 | Inpatient (IN) | payer MEDICAID ==
[~2020-03-15] VITALS: Ht 170.2 cm; Wt 79.5 kg
[2020-03-15] MEDS ORDERED: acetaminophen 325mg tablet PO STA (18:24)
[2020-03-15] MEDS ORDERED: CefTRIAXone 2gm/D5W 50ml 50 ML IV ONE (18:25)
[2020-03-15] MEDS ORDERED: normal saline 1000ML IV soln IV ONE (18:25)
--- NOTE | 2020-03-15 18:45 | NUR ---
Pt. to CT at this time.
[2020-03-15] MEDS ORDERED: CARV3.122 PO (18:54)
[2020-03-15] MEDS ORDERED: LISI-642 PO (18:54)
[2020-03-15] MEDS ORDERED: ATOR20TA PO (18:54)
[2020-03-15] MEDS ORDERED: CLOP75TA33 PO (18:54)
[2020-03-15] MEDS ORDERED: CLON-529 PO (18:54)
[2020-03-15] MEDS ORDERED: ASPI-1265 PO (18:54)
--- NOTE | 2020-03-15 18:54 | NUR ---
Pt. returned to ED [address]
[2020-03-15 19:06] LABS: ALANINE AMINOTRANSFERASE 33 U/L (12-78); ALBUMIN 3.3 G/DL (3.4-5.0); ALBUMIN/GLOBULIN RATIO 0.8 (1.1-1.5); ALKALINE PHOSPHATASE 31 IU/L (46-116); ANION GAP 13 (8-16); ASPARTATE AMINO TRANSFERASE 27 U/L (10-37); BILIRUBIN,TOTAL 0.7 MG/DL (0.1-1.0); BLOOD UREA NITROGEN 37 MG/DL (7-18); BUN/CREATININE RATIO 11.3 (5.4-32.0); CALCIUM 8.7 MG/DL (8.5-10.1); CHLORIDE 99 MMOL/L (99-107); CREATININE 3.28 MG/DL (0.60-1.10); GLUCOSE 174 MG/DL (70-104); POTASSIUM 4.2 MMOL/L (3.5-5.1); SODIUM 132 MMOL/L (135-145); TOTAL CARBON DIOXIDE 19.6 MMOL/L (24-32); TOTAL PROTEIN 7.3 G/DL (6.4-8.2); eGFR 20 ML/MIN
[2020-03-15 19:19] LABS: URINE AMPHETAMINE SCREEN POSITIVE (Neg); URINE BARBITUATE SCREEN NEGATIVE (Neg); URINE BENZODIAZEPINES SCREEN NEGATIVE (Neg); URINE CANNABINOID SCREEN NEGATIVE (Neg); URINE COCAINE SCREEN NEGATIVE (Neg); URINE METHADONE SCREEN NEGATIVE (Neg); URINE OPIATE SCREEN NEGATIVE (Neg); URINE PHENCYCLIDINE SCREEN NEGATIVE (Neg)
[2020-03-15] MEDS ORDERED: labetalol 20mg/4ml (5mg/ml) syringe IV ONE (19:35)
[2020-03-15] MEDS ORDERED: fentaNYL/PF 50MCG/1 ML 2ML syringe IV ONE (19:45)
[2020-03-15 19:54] LABS: CLARITY,URINE CLOUDY (Clear); COLOR,URINE YELLOW (Yellow); GLUCOSE, URINE NEGATIVE (Neg); KETONES,URINE NEGATIVE (Neg); LEUKOCYTE ESTERASE ,URINE MODERATE (Neg); NITRITES, URINE POSITIVE (Neg); OCCULT BLOOD,URINE LARGE (Neg); PH,URINE 5.5 (4.8-8.0); PROTEIN,URINE 100 mg/dl (Neg); UROBILINOGEN,URINE 0.2 E.U/dL (0.2-1.0)
[2020-03-15 19:56] LABS: UA COLLECTION TYPE CLN CATCH MIDSTREAM
--- NOTE | 2020-03-15 19:58 | NUR ---
archives technician informs RN that pt. is in severe pain. BP and HR also noted to be increased. MD notified of findings. New orders received for labetalol 10mg IV and fentanyl 75mcg for pain. Medications were given as ordered. EKG also done at this time per order d/t pt's HR at 160s. 12 Lead showed sinus tach rhytm. MD reported to bedside to shahriar pt. Another order for diltiazem 20mg received.
[2020-03-15] MEDS ORDERED: diltiazem 5mg/ml 5ml inj. IV ONE (20:00)
[2020-03-15 20:10] LABS: BACTERIA,URINE 2+ /HPF (Neg); MUCUS STRANDS NONE SEEN /LPF (Neg); SQUAMOUS EPITHELIAL CELL,UR FEW /LPF (FEW); WBC,URINE 30-50 /HPF (0-4)
[2020-03-15 20:19] LABS: BASOPHILS % (AUTO) 0.3 % (0-1); EOSINOPHILS % (AUTO) 0.2 % (0-6); HEMATOCRIT 35.1 % (42.0-52.0); HEMOGLOBIN 11.8 g/dl (14.0-17.9); LYMPHOCYTES # (AUTO) 0.3 X10'3 (1.1-4.8); LYMPHOCYTES % (AUTO) 4.7 % (21-51); MEAN CORPUSCULAR HEMOGLOBIN 28.9 PG (27.0-31.0); MEAN CORPUSCULAR HGB CONC 33.5 g/dL (33.0-36.5); MEAN CORPUSCULAR VOLUME 86.2 FL (78-98); MEAN PLATELET VOLUME 7.4 FL (7.4-10.4); MONOCYTES # (AUTO) 0.3 X10'3 (0-0.9); MONOCYTES % (AUTO) 3.5 % (2-12); NEUTROPHILS # (AUTO) 6.7 X10'3 (1.8-7.7); NEUTROPHILS % (AUTO) 91.3 % (42-75); PLATELET COUNT 182 X10'3 (140-440); RED BLOOD COUNT 4.08 X10'6 (4.70-6.10); WHITE BLOOD COUNT 7.4 X10'3 (4.5-11.0)
[2020-03-15] MEDS ORDERED: ondansetron/PF 4mg/2ml inj IV PRN (20:45)
[2020-03-15] MEDS ORDERED: magnesium hydroxide 30ml (MOM) UD suspension PO PRN (20:45)
[2020-03-15] MEDS ORDERED: HYDROcodone/acetaminophen 5mg/325mg tablet PO PRN (20:45)
[2020-03-15] MEDS ORDERED: morphine 2 MG/ML inj. syringe IV PRN (20:45)
[2020-03-15] MEDS ORDERED: acetaminophen 325mg tablet PO PRN (20:45)
[2020-03-15] MEDS ORDERED: mag hydrox/Alum hydrox/simeth 30ml oral suspension PO PRN (20:45)
[2020-03-15] MEDS: atorvastatin 20mg tablet PO SCH (21:02)
[2020-03-15] MEDS: normal saline 1000ml 1,000 ML IV SCH (21:02)
--- NOTE | 2020-03-15 21:21 | NUR ---
Pt. IV to RFA pulled out accidentally during transfer. New PIV to LFA initiated using 20G angiocath.
--- NOTE | 2020-03-15 21:27 | NUR ---
I have received report from Uche, ED RN and had the opportunity to ask questions and assume patient care.
--- NOTE | 2020-03-15 21:39 | NUR ---
Pt on unit in wheelchair and walked to bed.
[2020-03-15 21:50] VITALS: BP 150/98
[2020-03-16] VITALS: BP 119/73
[2020-03-16] MEDS: normal saline 1000ml 1,000 ML IV SCH ×2 (01:33→17:13)
[2020-03-16 05:07] LABS: BASOPHILS % (AUTO) 0.2 % (0-1); EOSINOPHILS % (AUTO) 0.3 % (0-6); HEMATOCRIT 34.8 % (42.0-52.0); HEMOGLOBIN 11.7 g/dl (14.0-17.9); LYMPHOCYTES # (AUTO) 0.7 X10'3 (1.1-4.8); LYMPHOCYTES % (AUTO) 7.3 % (21-51); MEAN CORPUSCULAR HEMOGLOBIN 28.9 PG (27.0-31.0); MEAN CORPUSCULAR HGB CONC 33.7 g/dL (33.0-36.5); MEAN PLATELET VOLUME 7.6 FL (7.4-10.4); MONOCYTES # (AUTO) 0.7 X10'3 (0-0.9); MONOCYTES % (AUTO) 7.3 % (2-12); NEUTROPHILS # (AUTO) 7.9 X10'3 (1.8-7.7); NEUTROPHILS % (AUTO) 84.9 % (42-75); PLATELET COUNT 190 X10'3 (140-440); RED BLOOD COUNT 4.05 X10'6 (4.70-6.10); RED CELL DISTRIBUTION WIDTH 14.8 % (11.5-14.5); WHITE BLOOD COUNT 9.3 X10'3 (4.5-11.0)
[2020-03-16 05:23] LABS: ALBUMIN 2.7 G/DL (3.4-5.0); ANION GAP 13 (8-16); BLOOD UREA NITROGEN 36 MG/DL (7-18); BUN/CREATININE RATIO 11.7 (5.4-32.0); CALCIUM 7.8 MG/DL (8.5-10.1); CHLORIDE 106 MMOL/L (99-107); CREATININE 3.09 MG/DL (0.60-1.10); GLUCOSE 109 MG/DL (70-104); POTASSIUM 4.3 MMOL/L (3.5-5.1); SODIUM 138 MMOL/L (135-145); TOTAL CARBON DIOXIDE 18.9 MMOL/L (24-32); eGFR 22 ML/MIN
--- NOTE | 2020-03-16 05:41 | NUR ---
Dr. Bailey paged. PAGER ID: [phone] MESSAGE: [id number] Ken Saleem Acgabo pyelonephritis. Blood CX positive gram neg rods in anaerobic Magaly, Surg 5475
--- NOTE | 2020-03-16 06:15 | NUR ---
Patient in room POLINA 350. I have received report from BRIGITTE Sethi and had the opportunity to ask questions and assume patient care.
--- NOTE | 2020-03-16 06:17 | NUR ---
Problems reprioritized. Patient report given, questions answered & plan of care reviewed with BRIGITTE Francisco.
[2020-03-16 07:00] VITALS: BP 164/105
[2020-03-16 07:39] VITALS: BP 168/107
[2020-03-16] MEDS: CefTRIAXone/D5W-Rocephin 1gm 50 ML IV SCH (08:12)
[2020-03-16] MEDS: carVEDilol 3.125mg tablet PO SCH ×2 (08:12→19:28)
[2020-03-16] MEDS: lisinopril 5mg tablet PO SCH (08:13)
[2020-03-16] MEDS: clopidogrel 75mg tablet PO SCH (08:13)
[2020-03-16] MEDS: aspirin 81mg tab.chew PO SCH (08:13)
[2020-03-16] MEDS: cloNIDine 0.1 mg tablet PO SCH ×2 (08:13→19:28)
[2020-03-16] MEDS: heparin, porcine 5000 units/ml vial SQ SCH ×2 (08:14→19:29)
[2020-03-16 12:00] VITALS: BP 155/102
[2020-03-16] MEDS: acetaminophen 325mg tablet PO PRN (12:24)
--- NOTE | 2020-03-16 18:00 | NUR ---
Patient in room POLINA 350. I have received report from Maryam BRIGGS and had the opportunity to ask questions and assume patient care.
--- NOTE | 2020-03-16 18:32 | NUR ---
Problems reprioritized. Patient report given, questions answered & plan of care reviewed with BRIGITTE Maria.
[2020-03-16] MEDS: lactobacillus rhamnosus 10,000 MMU CELLS/CAPSULE PO SCH (19:28)
[2020-03-16 20:00] VITALS: BP 191/116
[2020-03-16] MEDS: atorvastatin 20mg tablet PO SCH (20:32)
[2020-03-16] MEDS: HYDROcodone/acetaminophen 10/325mg tab PO PRN (20:35)
--- NOTE | 2020-03-16 21:50 | NUR ---
patient bp was 191/116 gave his catapres and coreg at 1999 and took his bp again at 2129 it read 166/79
[2020-03-16] MEDS ORDERED: cloNIDine 0.1 mg tablet PO ONE (22:20)
--- NOTE | 2020-03-16 22:24 | NUR ---
Paged Dr Bailey because patients bp was 193/122 ordered 0.1 clonidine po x1
[2020-03-16] MEDS: morphine 2 MG/ML inj. syringe IV PRN (23:38)
[2020-03-17] VITALS (11 sets, daily range): BP systolic 150–227; BP diastolic 70–134
--- NOTE | 2020-03-17 00:49 | NUR ---
patients bp was 176/111 at 2330 gave morphine at 2340 took bp at 0040 it was 166/89 will continue to monitor
[2020-03-17] MEDS: normal saline 1000ml 1,000 ML IV SCH ×3 (02:33→23:45)
[2020-03-17] MEDS: morphine 2 MG/ML inj. syringe IV PRN (04:26)
[2020-03-17 05:32] LABS: BASOPHILS % (AUTO) 0.2 % (0-1); EOSINOPHILS % (AUTO) 0.8 % (0-6); HEMATOCRIT 31.3 % (42.0-52.0); HEMOGLOBIN 10.7 g/dl (14.0-17.9); LYMPHOCYTES # (AUTO) 0.3 X10'3 (1.1-4.8); LYMPHOCYTES % (AUTO) 6.1 % (21-51); MEAN CORPUSCULAR HEMOGLOBIN 29.2 PG (27.0-31.0); MEAN CORPUSCULAR HGB CONC 34.2 g/dL (33.0-36.5); MEAN CORPUSCULAR VOLUME 85.3 FL (78-98); MEAN PLATELET VOLUME 7.6 FL (7.4-10.4); MONOCYTES # (AUTO) 0.5 X10'3 (0-0.9); MONOCYTES % (AUTO) 9.1 % (2-12); NEUTROPHILS # (AUTO) 4.6 X10'3 (1.8-7.7); NEUTROPHILS % (AUTO) 83.8 % (42-75); PLATELET COUNT 174 X10'3 (140-440); RED BLOOD COUNT 3.67 X10'6 (4.70-6.10); RED CELL DISTRIBUTION WIDTH 14.7 % (11.5-14.5); WHITE BLOOD COUNT 5.5 X10'3 (4.5-11.0)
[2020-03-17 05:43] LABS: ALBUMIN 2.6 G/DL (3.4-5.0); ANION GAP 13 (8-16); BLOOD UREA NITROGEN 38 MG/DL (7-18); BUN/CREATININE RATIO 12.7 (5.4-32.0); CALCIUM 8.1 MG/DL (8.5-10.1); CHLORIDE 106 MMOL/L (99-107); GLUCOSE 116 MG/DL (70-104); POTASSIUM 4.7 MMOL/L (3.5-5.1); SODIUM 137 MMOL/L (135-145); TOTAL CARBON DIOXIDE 18.1 MMOL/L (24-32); eGFR 22 ML/MIN
--- NOTE | 2020-03-17 06:18 | NUR ---
Problems reprioritized. Patient report given, questions answered & plan of care reviewed with Maryam BRIGGS.
--- NOTE | 2020-03-17 06:20 | NUR ---
Patient in room POLINA 350. I have received report from BRIGITTE Maria and had the opportunity to ask questions and assume patient care.
[2020-03-17] MEDS: CefTRIAXone/D5W-Rocephin 1gm 50 ML IV SCH (07:25)
[2020-03-17] MEDS: lactobacillus rhamnosus 10,000 MMU CELLS/CAPSULE PO SCH ×2 (07:26→20:40)
[2020-03-17] MEDS: carVEDilol 3.125mg tablet PO SCH ×2 (07:27→19:09)
[2020-03-17] MEDS: lisinopril 5mg tablet PO SCH (07:27)
[2020-03-17] MEDS: aspirin 81mg tab.chew PO SCH (07:27)
[2020-03-17] MEDS: cloNIDine 0.1 mg tablet PO SCH ×2 (07:27→19:09)
[2020-03-17] MEDS: clopidogrel 75mg tablet PO SCH (07:27)
[2020-03-17] MEDS: heparin, porcine 5000 units/ml vial SQ SCH ×2 (07:30→20:40)
[2020-03-17] MEDS: acetaminophen 325mg tablet PO PRN (07:33)
--- NOTE | 2020-03-17 16:24 | NUR ---
reviewed nursing home assistant administrator charting
[2020-03-17] MEDS: HYDROcodone/acetaminophen 10/325mg tab PO PRN (17:48)
--- NOTE | 2020-03-17 18:19 | NUR ---
Problems reprioritized. Patient report given, questions answered & plan of care reviewed with Tricia Petersen RN.
--- NOTE | 2020-03-17 18:36 | NUR ---
Patient in room POLINA 350. I have received report from BRIGITTE Francisco and had the opportunity to ask questions and assume patient care. Addendum: 03/17/20 at 1836 by Fidelina Fuller RN Amended: Links added.
[2020-03-17] MEDS: atorvastatin 20mg tablet PO SCH (20:40)
[2020-03-18] VITALS (10 sets, daily range): BP systolic 166–203; BP diastolic 101–130
[2020-03-18] MEDS: HYDROcodone/acetaminophen 10/325mg tab PO PRN (01:36)
[2020-03-18] MEDS: cloNIDine 0.1 mg tablet PO SCH ×4 (01:36→23:21)
[2020-03-18 06:01] LABS: BASOPHILS % (AUTO) 0.2 % (0-1); EOSINOPHILS % (AUTO) 1.4 % (0-6); HEMOGLOBIN 10.7 g/dl (14.0-17.9); LYMPHOCYTES # (AUTO) 0.5 X10'3 (1.1-4.8); LYMPHOCYTES % (AUTO) 14.3 % (21-51); MEAN CORPUSCULAR HEMOGLOBIN 28.4 PG (27.0-31.0); MEAN CORPUSCULAR HGB CONC 33.5 g/dL (33.0-36.5); MEAN CORPUSCULAR VOLUME 84.9 FL (78-98); MEAN PLATELET VOLUME 7.7 FL (7.4-10.4); MONOCYTES # (AUTO) 0.5 X10'3 (0-0.9); MONOCYTES % (AUTO) 14.1 % (2-12); NEUTROPHILS # (AUTO) 2.5 X10'3 (1.8-7.7); PLATELET COUNT 193 X10'3 (140-440); RED BLOOD COUNT 3.77 X10'6 (4.70-6.10); RED CELL DISTRIBUTION WIDTH 14.6 % (11.5-14.5); WHITE BLOOD COUNT 3.6 X10'3 (4.5-11.0)
[2020-03-18 06:09] LABS: ALBUMIN 2.6 G/DL (3.4-5.0); ANION GAP 9 (8-16); BLOOD UREA NITROGEN 38 MG/DL (7-18); BUN/CREATININE RATIO 11.9 (5.4-32.0); CALCIUM 8.6 MG/DL (8.5-10.1); CHLORIDE 105 MMOL/L (99-107); CREATININE 3.19 MG/DL (0.60-1.10); GLUCOSE 94 MG/DL (70-104); SODIUM 136 MMOL/L (135-145); TOTAL CARBON DIOXIDE 21.7 MMOL/L (24-32); eGFR 21 ML/MIN
--- NOTE | 2020-03-18 06:30 | NUR ---
Patient in room POLINA 350. I have received report from Tricia Petersen RN and had the opportunity to ask questions and assume patient care.
--- NOTE | 2020-03-18 06:44 | NUR ---
Problems reprioritized. Patient report given, questions answered & plan of care reviewed with BRIGITTE Alejo.
[2020-03-18] MEDS: carVEDilol 3.125mg tablet PO SCH ×2 (08:00→19:45)
[2020-03-18] MEDS: aspirin 81mg tab.chew PO SCH (09:01)
[2020-03-18] MEDS: clopidogrel 75mg tablet PO SCH (09:01)
[2020-03-18] MEDS: lactobacillus rhamnosus 10,000 MMU CELLS/CAPSULE PO SCH ×2 (09:01→19:44)
[2020-03-18] MEDS: lisinopril 5mg tablet PO SCH (09:02)
[2020-03-18] MEDS: CefTRIAXone/D5W-Rocephin 1gm 50 ML IV SCH (09:02)
[2020-03-18] MEDS: heparin, porcine 5000 units/ml vial SQ SCH ×2 (09:02→19:46)
[2020-03-18] MEDS: normal saline 1000ml 1,000 ML IV SCH (10:50)
--- NOTE | 2020-03-18 11:26 | NUR ---
Patient in room POLINA 350. I have received report from BRIGITTE GRECO and had the opportunity to ask questions and assume patient care.
--- NOTE | 2020-03-18 11:28 | NUR ---
Problems reprioritized. Patient report given, questions answered & plan of care reviewed with Francy BRIGGS.
--- NOTE | 2020-03-18 11:45 | NUR ---
Dr Nicholas notified of patient's BP of 172/108 57 and that patient had received his lisinopril but coreg and clonidine held due to HR being under [address] Nicholas ordered for NS@100 to be dc'd and she will " see patient in a bit." Addendum: 03/18/20 at 1148 by Francy Hector RN Dr Nicholas also notified of patient's BP of 172/115 hr 56 after lisinipril administration and Bp recheck.
--- NOTE | 2020-03-18 14:05 | NUR ---
Recheck of patient's BP is 203/119 hr 61 AND 195/[address] Nicholas asked if patient was given clonidine. Reminded Dr. Nicholas that Clonidine was held due to HR being outside of parameters. Dr Nicholas ordered that clonidine to be given.
[2020-03-18] MEDS ORDERED: cloNIDine 0.1 mg tablet PO ONE (14:10)
--- NOTE | 2020-03-18 15:32 | NUR ---
CLONIDINE 0.2MG PO WAS ADMINISTERED ORDERED. RECHECK OF BP IS NOW AT 198/130 HR 61 AT REST. PATIENT HAS NO COMPLAINTS. DENIES ANY SYMPTOMS AND APPEARS TO BE RESTING COMFORTABLY, RESPIRATIONS EVEN AND UNLABORED, IN RECLINER WATCHING TV. DR CONNELL CALLED AND NEW ORDERS RECEIVED FOR NORVASC 10MG PO ONE TIME NOW.
[2020-03-18] MEDS ORDERED: amLODIPine 5mg tablet PO ONE (15:40)
--- NOTE | 2020-03-18 16:40 | NUR ---
reviewed student nurse charting
--- NOTE | 2020-03-18 16:47 | NUR ---
NORVASC 10MG ADMINISTERED TO PATIENT. RECHECK OF BP IS 200/105 HR 54 AT REST. PATIENT DENIES ANY SYMPTOMS OR COMPLAINTS OTHER THAN HUNGRY. DR CONNELL NOTIFIED AND RECEIVED ORDERS TO NOT ADMINISTER CLONIDINE 1600 DOSE, NITROPATCH 0.5INCH [id number].
[2020-03-18] MEDS ORDERED: lisinopril 10 MG tablet PO ONE (16:50)
[2020-03-18] MEDS: lisinopril 20mg tablet PO SCH (17:00)
--- NOTE | 2020-03-18 17:04 | NUR ---
Received call from Dr. Nicholas to not order nitropatch but to order Lisinopril 10mg po give now and recheck BP in 1 hour if BP is still high to administer Lisinopirl 5mg PO.
[2020-03-18] MEDS ORDERED: lisinopril 5mg tablet PO ONE (17:50)
--- NOTE | 2020-03-18 18:21 | NUR ---
Problems reprioritized. Patient report given, questions answered & plan of care reviewed with BRIGITTE AVELAR.
[2020-03-18] MEDS: atorvastatin 20mg tablet PO SCH (23:20)
[2020-03-19 04:38] VITALS: BP 157/105
[2020-03-19 05:03] LABS: BASOPHILS % (AUTO) 0.4 % (0-1); EOSINOPHILS # (AUTO) 0.1 X10'3 (0-0.9); EOSINOPHILS % (AUTO) 2.7 % (0-6); HEMATOCRIT 34.6 % (42.0-52.0); HEMOGLOBIN 11.8 g/dl (14.0-17.9); LYMPHOCYTES # (AUTO) 0.7 X10'3 (1.1-4.8); LYMPHOCYTES % (AUTO) 18.4 % (21-51); MEAN CORPUSCULAR HEMOGLOBIN 28.7 PG (27.0-31.0); MEAN CORPUSCULAR HGB CONC 34.2 g/dL (33.0-36.5); MEAN CORPUSCULAR VOLUME 83.9 FL (78-98); MEAN PLATELET VOLUME 7.4 FL (7.4-10.4); MONOCYTES # (AUTO) 0.6 X10'3 (0-0.9); MONOCYTES % (AUTO) 15.3 % (2-12); NEUTROPHILS # (AUTO) 2.6 X10'3 (1.8-7.7); NEUTROPHILS % (AUTO) 63.2 % (42-75); PLATELET COUNT 225 X10'3 (140-440); RED BLOOD COUNT 4.12 X10'6 (4.70-6.10); RED CELL DISTRIBUTION WIDTH 14.8 % (11.5-14.5); WHITE BLOOD COUNT 4.1 X10'3 (4.5-11.0)
[2020-03-19 05:18] LABS: ALBUMIN 2.9 G/DL (3.4-5.0); ANION GAP 10 (8-16); BLOOD UREA NITROGEN 42 MG/DL (7-18); BUN/CREATININE RATIO 14.3 (5.4-32.0); CHLORIDE 104 MMOL/L (99-107); CREATININE 2.94 MG/DL (0.60-1.10); GLUCOSE 102 MG/DL (70-104); POTASSIUM 4.9 MMOL/L (3.5-5.1); SODIUM 136 MMOL/L (135-145); TOTAL CARBON DIOXIDE 21.9 MMOL/L (24-32); eGFR 23 ML/MIN
[2020-03-19 07:30] VITALS: BP 150/111
[2020-03-19 07:46] LABS: PLATELET ESTIMATE NORMAL; TOTAL CELLS COUNTED 100
[2020-03-19 07:57] VITALS: BP 170/102
[2020-03-19] MEDS: cloNIDine 0.1 mg tablet PO SCH ×2 (08:00→10:22)
[2020-03-19] MEDS: carVEDilol 3.125mg tablet PO SCH ×2 (08:00→10:22)
[2020-03-19] MEDS: lactobacillus rhamnosus 10,000 MMU CELLS/CAPSULE PO SCH (08:22)
[2020-03-19] MEDS: aspirin 81mg tab.chew PO SCH (08:22)
[2020-03-19] MEDS: clopidogrel 75mg tablet PO SCH (08:23)
[2020-03-19] MEDS: lisinopril 20mg tablet PO SCH (08:23)
[2020-03-19] MEDS: heparin, porcine 5000 units/ml vial SQ SCH (08:24)
[2020-03-19] MEDS: CefTRIAXone/D5W-Rocephin 1gm 50 ML IV SCH (08:25)
[2020-03-19] MEDS ORDERED: CLON0.1T2 PO (10:06)
--- NOTE | 2020-03-19 10:13 | NUR ---
Spoke with MD. notified of the heart rate this AM during med pass. He said to give catapres 0.2mg and coreg 3.125mg regardless. will administer medication and monitor patient.
[2020-03-19 10:54] VITALS: BP 150/111
[2020-03-19 11:34] VITALS: BP 171/103
[2020-03-19] MEDS ORDERED: LEVO500T89 PO (11:57)
[2020-03-19 12:15] VITALS: BP 165/109
--- NOTE | 2020-03-19 12:25 | NUR ---
PAGER ID: [phone] MESSAGE: [id number] Andi VILLA : patients BP still 165/109... would you like him to discharge still? gerardo [id number]
--- NOTE | 2020-03-19 14:37 | NUR ---
PATIENT STABLE AND APPROPRIATE FOR DISCHARGE HOME VIA PARTNERSHIP TRANSPORTATION. IV REMOVED, ALL BELONGINGS TAKEN FROM ROOM. NEW PRESCRIPTIONS TRANSMITTED TO [facility] ON [address]. PATIENT IS AWARE OF NEXT DUE DOSES FOR MEDICATIONS.
== END 2020-03-19 14:47 | disposition home or self-care (01) | DRG 720 ==
LOC: ER 18:12 → ED HOLD 20:44 → SUR 3N 21:48
PROVIDERS: ADMIT Internal Medicine; ATTEND Internal Medicine
DX: A41.51 Sepsis due to Escherichia coli [E. coli] (principal); E87.2 Acidosis; E78.5 Hyperlipidemia, unspecified; F15.90 Other stimulant use, unspecified, uncomplicated; F17.210 Nicotine dependence, cigarettes, uncomplicated; I12.9 Hypertensive chronic kidney disease with stage 1 through stage 4 chronic kidney disease, or unspecified chronic kidney disease; I16.1 Hypertensive emergency; I25.10 Atherosclerotic heart disease of native coronary artery without angina pectoris; N10 Acute pyelonephritis; N18.3 Chronic kidney disease, stage 3 (moderate); D63.8 Anemia in other chronic diseases classified elsewhere; Z79.02 Long term (current) use of antithrombotics/antiplatelets; Z79.82 Long term (current) use of aspirin; Z79.899 Other long term (current) drug therapy; Z87.442 Personal history of urinary calculi; Z90.49 Acquired absence of other specified parts of digestive tract
CPT/HCPCS: 36415; 71045; 74176; 80048; 80053; 80305; 81001; 83605; 83880; 84145; 85007; 85025; 87040; 87077; 87081; 87088; 87186; 93005; 99285; G0378; J0696; J1644; J2270; J3010; J3490; J7030

== ENCOUNTER 2020-11-24 11:59 | Emergency (ER) | payer MEDICAID ==
[~2020-11-24] VITALS: Ht 170.2 cm; Wt 82.0 kg
[~2020-11-24 11:59] MED LIST changes: -ASPI-1071 PO; +ASPI-1265 PO; +ATOR20TA PO; -ATOR20TA66 PO; +CARV3.122 PO; +CLOP75TA33 PO; -CLOP75TA35 PO; -COR3.125T PO; +LEVO500T89 PO
[2020-11-24 12:20] VITALS: BP 224/132
[2020-11-24] MEDS ORDERED: LISI20TA28 PO (12:24)
--- NOTE | 2020-11-24 12:24 | NUR ---
SEEN IN TRIAGE BY TY PENA. AWARE OF BP
== END 2020-11-24 12:28 | disposition home or self-care (01) ==
LOC: ER 12:00
DX: I10 Essential (primary) hypertension (principal); Z76.0 Encounter for issue of repeat prescription; F12.90 Cannabis use, unspecified, uncomplicated; Z86.14 Personal history of Methicillin resistant Staphylococcus aureus infection; Z87.442 Personal history of urinary calculi; Z90.49 Acquired absence of other specified parts of digestive tract; Z60.2 Problems related to living alone; Z56.0 Unemployment, unspecified; Z79.82 Long term (current) use of aspirin; Z79.899 Other long term (current) drug therapy
CPT/HCPCS: 99281

== ENCOUNTER 2020-12-02 10:05 | Emergency (ER) | payer MEDICAID ==
[~2020-12-02] VITALS: Ht 170.2 cm; Wt 84.0 kg
[~2020-12-02 10:05] MED LIST changes: +LISI20TA28 PO
[2020-12-02 10:16] VITALS: BP 212/138
[2020-12-02] MEDS ORDERED: SULF1TAB45 PO (11:27)
[2020-12-02] MEDS ORDERED: CEPH250T PO (11:27)
== END 2020-12-02 11:55 | disposition home or self-care (01) ==
LOC: ER 10:06
DX: L08.9 Local infection of the skin and subcutaneous tissue, unspecified (principal); I10 Essential (primary) hypertension; F17.200 Nicotine dependence, unspecified, uncomplicated; F12.90 Cannabis use, unspecified, uncomplicated; Z87.442 Personal history of urinary calculi; Z86.14 Personal history of Methicillin resistant Staphylococcus aureus infection; Z90.89 Acquired absence of other organs; Z60.2 Problems related to living alone; Z56.0 Unemployment, unspecified; Z79.82 Long term (current) use of aspirin; Z79.2 Long term (current) use of antibiotics; Z79.899 Other long term (current) drug therapy
CPT/HCPCS: 99283

== ENCOUNTER 2021-02-13 10:57 | Emergency (ER) | payer MEDICAID ==
[~2021-02-13] VITALS: Ht 170.2 cm; Wt 77.3 kg
[~2021-02-13 10:57] MED LIST changes: -LISI20TA28 PO
[2021-02-13] MEDS ORDERED: labetalol 20mg/4ml (5mg/ml) syringe IV ONE (12:45)
--- NOTE | 2021-02-13 13:16 | NUR ---
PT WITH SBP >230. DR MERINO AT BEDSIDE. PATIENT PLACED ON MONITOR AND IV INITIATED. DAVID EDMONDSON RN UPDATED ON PT CONDITION.
[2021-02-13 13:20] LABS: BASOPHILS % (AUTO) 0.5 % (0-1); EOSINOPHILS # (AUTO) 0.2 X10'3 (0-0.9); EOSINOPHILS % (AUTO) 2.5 % (0-6); HEMOGLOBIN 12.9 g/dl (14.0-17.9); LYMPHOCYTES # (AUTO) 0.9 X10'3 (1.1-4.8); LYMPHOCYTES % (AUTO) 14.1 % (21-51); MEAN CORPUSCULAR HEMOGLOBIN 28.6 PG (27.0-31.0); MEAN CORPUSCULAR HGB CONC 33.9 g/dL (33.0-36.5); MEAN CORPUSCULAR VOLUME 84.5 FL (78-98); MEAN PLATELET VOLUME 7.5 FL (7.4-10.4); MONOCYTES # (AUTO) 0.4 X10'3 (0-0.9); MONOCYTES % (AUTO) 5.6 % (2-12); NEUTROPHILS # (AUTO) 4.9 X10'3 (1.8-7.7); NEUTROPHILS % (AUTO) 77.3 % (42-75); PLATELET COUNT 172 X10'3 (140-440); RED CELL DISTRIBUTION WIDTH 15.2 % (11.5-14.5); WHITE BLOOD COUNT 6.4 X10'3 (4.5-11.0)
[2021-02-13 13:28] LABS: PARTIAL THROMBOPLASTIN TIME 23 SECONDS (22-32)
[2021-02-13 13:31] LABS: ALANINE AMINOTRANSFERASE 50 U/L (12-78); ALBUMIN 3.4 G/DL (3.4-5.0); ALKALINE PHOSPHATASE 26 IU/L (46-116); ANION GAP 11 (8-16); ASPARTATE AMINO TRANSFERASE 40 U/L (10-37); BILIRUBIN,TOTAL 0.3 MG/DL (0.1-1.0); BLOOD UREA NITROGEN 46 MG/DL (7-18); BUN/CREATININE RATIO 14.3 (5.4-32.0); CALCIUM 8.3 MG/DL (8.5-10.1); CHLORIDE 104 MMOL/L (99-107); CREATININE 3.21 MG/DL (0.60-1.10); GLUCOSE 107 MG/DL (70-104); POTASSIUM 3.8 MMOL/L (3.5-5.1); SODIUM 142 MMOL/L (135-145); TOTAL PROTEIN 6.8 G/DL (6.4-8.2); eGFR 21 ML/MIN
[2021-02-13] MEDS ORDERED: LISI20TA28 PO (13:54)
[2021-02-13] MEDS ORDERED: CARV3.12 PO (13:54)
[2021-02-13] MEDS ORDERED: lisinopril 10 MG tablet PO ONE (13:55)
[2021-02-13] MEDS ORDERED: carVEDilol 3.125mg tablet PO SCH ×2 (14:14→20:00)
[2021-02-13 14:32] VITALS: BP 226/150
== END 2021-02-13 14:34 | disposition home or self-care (01) ==
LOC: ER 10:58
DX: I12.9 Hypertensive chronic kidney disease with stage 1 through stage 4 chronic kidney disease, or unspecified chronic kidney disease (principal); N18.9 Chronic kidney disease, unspecified; I42.9 Cardiomyopathy, unspecified; R51.9 Headache, unspecified; R41.0 Disorientation, unspecified; F12.90 Cannabis use, unspecified, uncomplicated; Z90.89 Acquired absence of other organs; Z60.2 Problems related to living alone; Z56.0 Unemployment, unspecified; Z79.82 Long term (current) use of aspirin; Z79.2 Long term (current) use of antibiotics; Z79.899 Other long term (current) drug therapy
CPT/HCPCS: 36415; 70450; 80053; 83880; 84484; 85025; 85610; 85730; 93005; 96374; 99291; J3490

== ENCOUNTER 2021-03-02 13:32 | Emergency (ER) | payer MEDICAID ==
[~2021-03-02 13:32] MED LIST changes: +CARV3.12 PO; +LISI20TA28 PO
[2021-03-03] MEDS ORDERED: CARV-49 PO (17:05)
[2021-03-03] MEDS ORDERED: CLON0.2T PO (17:05)
[2021-03-03] MEDS ORDERED: LISI20TA28 PO (17:05)
== END 2021-03-02 16:15 | disposition left against medical advice (07) ==
LOC: MERGE 13:34 → ER 13:34
DX: R03.0 Elevated blood-pressure reading, without diagnosis of hypertension (principal); Z53.21 Procedure and treatment not carried out due to patient leaving prior to being seen by health care provider

== ENCOUNTER 2021-03-03 12:44 | Emergency (ER) | payer MEDICAID ==
[~2021-03-03] VITALS: Ht 170.2 cm; Wt 81.8 kg
[2021-03-03] MEDS ORDERED: cloNIDine 0.1 mg tablet PO ONE (12:55)
[2021-03-03 13:18] LABS: BASOPHILS % (AUTO) 0.5 % (0-1); EOSINOPHILS # (AUTO) 0.1 X10'3 (0-0.9); EOSINOPHILS % (AUTO) 2.2 % (0-6); HEMATOCRIT 36.4 % (42.0-52.0); HEMOGLOBIN 12.4 g/dl (14.0-17.9); LYMPHOCYTES % (AUTO) 16.1 % (21-51); MEAN CORPUSCULAR HEMOGLOBIN 28.6 PG (27.0-31.0); MEAN CORPUSCULAR HGB CONC 34.1 g/dL (33.0-36.5); MEAN CORPUSCULAR VOLUME 84.1 FL (78-98); MONOCYTES # (AUTO) 0.4 X10'3 (0-0.9); MONOCYTES % (AUTO) 5.8 % (2-12); NEUTROPHILS # (AUTO) 4.9 X10'3 (1.8-7.7); NEUTROPHILS % (AUTO) 75.4 % (42-75); PLATELET COUNT 250 X10'3 (140-440); RED BLOOD COUNT 4.33 X10'6 (4.70-6.10); RED CELL DISTRIBUTION WIDTH 14.8 % (11.5-14.5); WHITE BLOOD COUNT 6.4 X10'3 (4.5-11.0)
[2021-03-03 13:34] LABS: ALANINE AMINOTRANSFERASE 40 U/L (12-78); ALBUMIN 3.4 G/DL (3.4-5.0); ALKALINE PHOSPHATASE 38 IU/L (46-116); ANION GAP 10 (8-16); ASPARTATE AMINO TRANSFERASE 23 U/L (10-37); BILIRUBIN,TOTAL 0.2 MG/DL (0.1-1.0); BLOOD UREA NITROGEN 49 MG/DL (7-18); BUN/CREATININE RATIO 15.9 (5.4-32.0); CALCIUM 8.3 MG/DL (8.5-10.1); CHLORIDE 107 MMOL/L (99-107); CREATININE 3.09 MG/DL (0.60-1.10); GLUCOSE 105 MG/DL (70-104); POTASSIUM 4.4 MMOL/L (3.5-5.1); SODIUM 140 MMOL/L (135-145); TOTAL PROTEIN 6.8 G/DL (6.4-8.2); eGFR 21 ML/MIN
[2021-03-03] MEDS ORDERED: metoprolol tartrate 50mg tablet PO ONE (15:30)
[2021-03-03 16:44] LABS: CLARITY,URINE CLEAR (Clear); COLOR,URINE YELLOW (Yellow); GLUCOSE, URINE NEGATIVE (Neg); KETONES,URINE NEGATIVE (Neg); LEUKOCYTE ESTERASE ,URINE NEGATIVE (Neg); NITRITES, URINE NEGATIVE (Neg); OCCULT BLOOD,URINE SMALL (Neg); PH,URINE 5.5 (4.8-8.0); PROTEIN,URINE >=300 mg/dl (Neg); UROBILINOGEN,URINE 0.2 E.U/dL (0.2-1.0)
[2021-03-03 16:48] LABS: UA COLLECTION TYPE CLN CATCH MIDSTREAM
[2021-03-03 16:51] LABS: BACTERIA,URINE 1+ /HPF (Neg); RBC,URINE 0-2 /HPF (0-2); SQUAMOUS EPITHELIAL CELL,UR FEW /LPF (FEW); WBC,URINE 0-4 /HPF (0-4)
[2021-03-03 16:56] LABS: URINE AMPHETAMINE SCREEN NEGATIVE (Neg); URINE BARBITUATE SCREEN NEGATIVE (Neg); URINE BENZODIAZEPINES SCREEN NEGATIVE (Neg); URINE CANNABINOID SCREEN NEGATIVE (Neg); URINE COCAINE SCREEN NEGATIVE (Neg); URINE METHADONE SCREEN NEGATIVE (Neg); URINE OPIATE SCREEN NEGATIVE (Neg); URINE PHENCYCLIDINE SCREEN NEGATIVE (Neg)
[2021-03-03] MEDS ORDERED: lisinopril 10 MG tablet PO ONE (17:05)
[2021-03-03] MEDS ORDERED: LISI20TA28 PO (17:05)
[2021-03-03] MEDS ORDERED: CARV-49 PO (17:05)
[2021-03-03] MEDS ORDERED: CLON0.2T PO (17:05)
[2021-03-03 17:31] VITALS: BP 185/127
== END 2021-03-03 17:25 | disposition home or self-care (01) ==
LOC: ER 12:45
DX: I16.0 Hypertensive urgency (principal); R42 Dizziness and giddiness; I10 Essential (primary) hypertension; F12.90 Cannabis use, unspecified, uncomplicated; Z87.442 Personal history of urinary calculi; Z86.14 Personal history of Methicillin resistant Staphylococcus aureus infection; Z90.89 Acquired absence of other organs; Z60.2 Problems related to living alone; Z56.0 Unemployment, unspecified; Z79.82 Long term (current) use of aspirin; Z79.899 Other long term (current) drug therapy; Z79.2 Long term (current) use of antibiotics
CPT/HCPCS: 36415; 71045; 80053; 80305; 81001; 83880; 84484; 85025; 93005; 99285

== ENCOUNTER 2021-11-10 14:32 | Inpatient (IN) | payer MEDICAID ==
[~2021-11-10] VITALS: Ht 170.2 cm; Wt 84.9 kg
[2021-11-10] VITALS (8 sets, daily range): BP systolic 171–223; BP diastolic 92–138
[~2021-11-10 14:32] MED LIST changes: +CARV-49 PO; +CLON0.2T PO; -LEVO500T89 PO; +LEVO500T90 PO; -LISI20TA28 PO
[2021-11-10 15:54] LABS: BASOPHILS % (AUTO) 0.6 % (0-1); EOSINOPHILS # (AUTO) 0.2 X10'3 (0-0.9); EOSINOPHILS % (AUTO) 2.5 % (0-6); LYMPHOCYTES # (AUTO) 0.7 X10'3 (1.1-4.8); LYMPHOCYTES % (AUTO) 10.4 % (21-51); MEAN CORPUSCULAR HEMOGLOBIN 27.2 PG (27.0-31.0); MEAN CORPUSCULAR VOLUME 79.9 FL (78-98); MONOCYTES # (AUTO) 0.4 X10'3 (0-0.9); MONOCYTES % (AUTO) 5.9 % (2-12); NEUTROPHILS # (AUTO) 5.7 X10'3 (1.8-7.7); NEUTROPHILS % (AUTO) 80.6 % (42-75); PLATELET COUNT 170 X10'3 (140-440); RED BLOOD COUNT 2.58 X10'6 (4.70-6.10); RED CELL DISTRIBUTION WIDTH 16.1 % (11.5-14.5); WHITE BLOOD COUNT 7.1 X10'3 (4.5-11.0)
[2021-11-10 15:57] LABS: HEMATOCRIT 20.6 % (42.0-52.0)
[2021-11-10 16:11] LABS: ALANINE AMINOTRANSFERASE 28 U/L (12-78); ALBUMIN 3.2 G/DL (3.4-5.0); ALBUMIN/GLOBULIN RATIO 0.9 (1.1-1.5); ALKALINE PHOSPHATASE 21 IU/L (46-116); ANION GAP 17 (8-16); ASPARTATE AMINO TRANSFERASE 21 U/L (10-37); BILIRUBIN,TOTAL 0.3 MG/DL (0.1-1.0); BLOOD UREA NITROGEN 118 MG/DL (7-18); BUN/CREATININE RATIO 10.1 (5.4-32.0); CALCIUM 8.1 MG/DL (8.5-10.1); CHLORIDE 103 MMOL/L (99-107); GLUCOSE 99 MG/DL (70-104); POTASSIUM 4.2 MMOL/L (3.5-5.1); SODIUM 140 MMOL/L (135-145); TOTAL CARBON DIOXIDE 19.9 MMOL/L (24-32); TOTAL PROTEIN 6.9 G/DL (6.4-8.2); eGFR 5 ML/MIN
[2021-11-10 16:30] LABS: APTT 22 SECONDS (22-32)
[2021-11-10] MEDS ORDERED: LORazepam 2 mg/ml vial IV ONE (17:20)
[2021-11-10 17:53] LABS: CLARITY,URINE CLOUDY (Clear); COLOR,URINE RED (Yellow); GLUCOSE, URINE 100 mg/dl (Neg); KETONES,URINE NEGATIVE (Neg); LEUKOCYTE ESTERASE ,URINE NEGATIVE (Neg); NITRITES, URINE NEGATIVE (Neg); OCCULT BLOOD,URINE LARGE (Neg); PROTEIN,URINE >=300 mg/dl (Neg); UROBILINOGEN,URINE 0.2 E.U/dL (0.2-1.0)
[2021-11-10 17:54] LABS: UA COLLECTION TYPE CLN CATCH MIDSTREAM
[2021-11-10] MEDS ORDERED: normal saline 1000ml 1,000 ML IV ONE (18:00)
[2021-11-10] MEDS ORDERED: niCARdipine I.V. 50 MG in normal saline 250ml IV soln 230 ML IV SCH (18:00)
[2021-11-10 18:02] LABS: BACTERIA,URINE 1+ /HPF (Neg); RBC,URINE TNTC /HPF (0-2); SQUAMOUS EPITHELIAL CELL,UR FEW /LPF (FEW)
[2021-11-10] MEDS ORDERED: niCARDipine-NS 40mg/200ml IVPB 250 ML IV SCH (18:10)
--- NOTE | 2021-11-10 18:16 | NUR ---
sodium bicarb not ready, called pharmacy spoke to
[2021-11-10] MEDS ORDERED: magnesium 4gm in 100ml NS 100 ML IV PRN (18:20)
[2021-11-10] MEDS ORDERED: albuterol 2.5 MG/3 ML nebule NEB PRN (18:20)
[2021-11-10] MEDS ORDERED: ondansetron/PF 4mg/2ml inj IV PRN (18:20)
[2021-11-10] MEDS ORDERED: potassium CL 10mEq/100ml bag 100 ML IV PRN (18:20)
[2021-11-10] MEDS ORDERED: PERFLUTREN PROTEIN-A MICROSPHR (Optison) 0.22 MG/ML 3ML VIAL IV ONE (18:20)
[2021-11-10] MEDS ORDERED: acetaminophen 325mg tablet PO PRN (18:20)
[2021-11-10] MEDS ORDERED: magnesium 2GM in 50ml NS 50 ML IV PRN (18:20)
[2021-11-10] MEDS ORDERED: potassium Cl 20 mEq SR tablet PO PRN (18:20)
[2021-11-10] MEDS ORDERED: ipratropium/albuterol 3ml nebule NEB PRN (18:20)
[2021-11-10 18:52] LABS: MAGNESIUM 2.8 MG/DL (1.5-2.4)
[2021-11-10] MEDS: sodium bicarbonate (8.4%) inj. 150 MEQ in dextrose 5%-water 1,000 ML IV SCH (21:05)
[2021-11-10 21:57] LABS: URINE AMPHETAMINE SCREEN NEGATIVE (Neg); URINE BARBITUATE SCREEN NEGATIVE (Neg); URINE BENZODIAZEPINES SCREEN NEGATIVE (Neg); URINE CANNABINOID SCREEN NEGATIVE (Neg); URINE COCAINE SCREEN NEGATIVE (Neg); URINE METHADONE SCREEN NEGATIVE (Neg); URINE OPIATE SCREEN NEGATIVE (Neg); URINE PHENCYCLIDINE SCREEN NEGATIVE (Neg)
[2021-11-10 22:19] LABS: HEMATOCRIT 22.5 % (42.0-52.0); HEMOGLOBIN 7.8 g/dl (14.0-17.9); MEAN CORPUSCULAR HEMOGLOBIN 27.9 PG (27.0-31.0); MEAN CORPUSCULAR HGB CONC 34.7 g/dL (33.0-36.5); MEAN CORPUSCULAR VOLUME 80.4 FL (78-98); MEAN PLATELET VOLUME 5.9 FL (7.4-10.4); PLATELET COUNT 160 X10'3 (140-440); RED CELL DISTRIBUTION WIDTH 15.4 % (11.5-14.5); WHITE BLOOD COUNT 5.9 X10'3 (4.5-11.0)
--- NOTE | 2021-11-10 22:25 | NUR ---
Pt arrived to unit, ambulated to bed. Complains of dizziness with ambulation, resolved with rest. Pt on Cardene gtt at 5ml/hr, Sodium Bicarb at 100ml/hr. Pt does not appear to be in distress, denies pain, bed locked and in lowest position. Tele box in place. Will continue to monitor.
--- NOTE | 2021-11-10 23:59 | NUR ---
Ken Saleem, rm 3021.Currently on Cardene gtt at 5 since 1800. BP 190's-200's since arrival at 2230. Currently 200/112. Denies headache, blurry vision, chest pain, SOB, dizziness. New orders? Thank you, Tracy BRIGGS ext: [phone]
[2021-11-11] VITALS (10 sets, daily range): BP systolic 106–193; BP diastolic 78–105
--- NOTE | 2021-11-11 00:05 | NUR ---
Spoke with Dr. Bailey about pt persistent HTN and Cardene gtt orders. New orders placed. Discussed the inappropriateness of the Cardene gtt order d/t titration parameters. This RN called pharmacy, spoke with Gunnar who states he will change the order by removing titration parameters.
[2021-11-11] MEDS ORDERED: niCARDipine-NS 40mg/200ml IVPB 250 ML IV SCH (00:10)
[2021-11-11] MEDS: hydrALAZINE 20mg/ml inj. IV PRN (02:34)
[2021-11-11 06:54] LABS: HEMATOCRIT 22.1 % (42.0-52.0); HEMOGLOBIN 7.7 g/dl (14.0-17.9); MEAN CORPUSCULAR HEMOGLOBIN 27.8 PG (27.0-31.0); MEAN CORPUSCULAR HGB CONC 34.8 g/dL (33.0-36.5); MEAN CORPUSCULAR VOLUME 79.8 FL (78-98); MEAN PLATELET VOLUME 6.4 FL (7.4-10.4); PLATELET COUNT 165 X10'3 (140-440); RED BLOOD COUNT 2.76 X10'6 (4.70-6.10); RED CELL DISTRIBUTION WIDTH 15.4 % (11.5-14.5); WHITE BLOOD COUNT 7.5 X10'3 (4.5-11.0)
[2021-11-11 07:24] LABS: ALANINE AMINOTRANSFERASE 27 U/L (12-78); ALBUMIN 3.2 G/DL (3.4-5.0); ALKALINE PHOSPHATASE 22 IU/L (46-116); ANION GAP 19 (8-16); ASPARTATE AMINO TRANSFERASE 24 U/L (10-37); BILIRUBIN,TOTAL 0.4 MG/DL (0.1-1.0); BLOOD UREA NITROGEN 118 MG/DL (7-18); BUN/CREATININE RATIO 10.3 (5.4-32.0); CALCIUM 7.9 MG/DL (8.5-10.1); CHLORIDE 102 MMOL/L (99-107); CREATININE 11.44 MG/DL (0.60-1.10); GLUCOSE 111 MG/DL (70-104); MAGNESIUM 2.6 MG/DL (1.5-2.4); POTASSIUM 3.2 MMOL/L (3.5-5.1); SODIUM 140 MMOL/L (135-145); TOTAL PROTEIN 6.5 G/DL (6.4-8.2); eGFR 5 ML/MIN
[2021-11-11] MEDS: docusate sod 100mg capsule PO SCH ×3 (08:00→21:03)
[2021-11-11] MEDS: K and/or MAG REPLACEMENT MC SCH ×3 (08:00→19:44)
[2021-11-11] MEDS: niCARDipine-NS 40mg/200ml IVPB 250 ML IV SCH ×4 (09:41→21:19)
[2021-11-11] MEDS: sodium bicarbonate (8.4%) inj. 150 MEQ in dextrose 5%-water 1,000 ML IV SCH ×2 (09:49→17:10)
[2021-11-11] MEDS ORDERED: AMLO10TA13 PO (12:19)
[2021-11-11] MEDS ORDERED: CLON-330 PO (12:19)
[2021-11-11] MEDS ORDERED: CARV6.253 PO (12:19)
[2021-11-11] MEDS ORDERED: LIDOcaine 2% 10ml TOPICAL JELLY (Urojet) TP ONE (13:55)
[2021-11-11 14:00] LABS: HEMOGLOBIN 7.5 g/dl (14.0-17.9); MEAN CORPUSCULAR HEMOGLOBIN 27.6 PG (27.0-31.0); MEAN CORPUSCULAR HGB CONC 34.5 g/dL (33.0-36.5); MEAN CORPUSCULAR VOLUME 80.2 FL (78-98); MEAN PLATELET VOLUME 6.4 FL (7.4-10.4); PLATELET COUNT 178 X10'3 (140-440); RED BLOOD COUNT 2.71 X10'6 (4.70-6.10); RED CELL DISTRIBUTION WIDTH 15.8 % (11.5-14.5); WHITE BLOOD COUNT 6.9 X10'3 (4.5-11.0)
[2021-11-11 14:06] LABS: HEMATOCRIT 21.7 % (42.0-52.0)
--- NOTE | 2021-11-11 14:27 | NUR ---
PN received lab result for patient. Hct 21.7 and Hgb 7.5. notified ,no new orders at this time.
--- NOTE | 2021-11-11 14:34 | NUR ---
Per MD's order, Pt has wood catheter 16fr in place
[2021-11-11] MEDS: potassium Cl 20 mEq SR tablet PO PRN ×3 (15:12→21:02)
--- NOTE | 2021-11-11 15:26 | NUR ---
Pt's wood catheter was accidentally removed by pt. Every effort made by 2 RN,s to re-insert, pt strongly refused.
--- NOTE | 2021-11-11 17:54 | NUR ---
Per MD verbal orders, changed Hydralazine parameters to systolic <160, previous order was for systolic <180. Also, Cardene was increased per orders to 10mg/hr
[2021-11-11] MEDS ORDERED: cloNIDine 0.1 mg tablet PO SCH (20:00)
[2021-11-11] MEDS: carvedilol 6.25mg tablet PO SCH (21:03)
[2021-11-11] MEDS: cloNIDine 0.1 mg tablet PO SCH (21:03)
[2021-11-11 22:18] LABS: HEMOGLOBIN 7.2 g/dl (14.0-17.9); MEAN CORPUSCULAR HEMOGLOBIN 27.6 PG (27.0-31.0); MEAN CORPUSCULAR HGB CONC 34.4 g/dL (33.0-36.5); MEAN CORPUSCULAR VOLUME 80.1 FL (78-98); MEAN PLATELET VOLUME 6.4 FL (7.4-10.4); PLATELET COUNT 164 X10'3 (140-440); RED BLOOD COUNT 2.62 X10'6 (4.70-6.10); RED CELL DISTRIBUTION WIDTH 15.7 % (11.5-14.5); WHITE BLOOD COUNT 6.4 X10'3 (4.5-11.0)
[2021-11-12] VITALS (9 sets, daily range): BP systolic 142–168; BP diastolic 82–102
[2021-11-12] MEDS: niCARDipine-NS 40mg/200ml IVPB 250 ML IV SCH ×5 (00:43→20:12)
[2021-11-12] MEDS: sodium bicarbonate (8.4%) inj. 150 MEQ in dextrose 5%-water 1,000 ML IV SCH (04:40)
[2021-11-12 06:29] LABS: HEMOGLOBIN 7.1 g/dl (14.0-17.9); MEAN CORPUSCULAR HEMOGLOBIN 27.5 PG (27.0-31.0); MEAN CORPUSCULAR HGB CONC 34.2 g/dL (33.0-36.5); MEAN CORPUSCULAR VOLUME 80.5 FL (78-98); MEAN PLATELET VOLUME 6.6 FL (7.4-10.4); PLATELET COUNT 175 X10'3 (140-440); RED BLOOD COUNT 2.58 X10'6 (4.70-6.10); RED CELL DISTRIBUTION WIDTH 15.9 % (11.5-14.5); WHITE BLOOD COUNT 7.1 X10'3 (4.5-11.0)
[2021-11-12 06:42] LABS: HEMATOCRIT 20.8 % (42.0-52.0)
[2021-11-12 07:26] LABS: ALANINE AMINOTRANSFERASE 22 U/L (12-78); ALBUMIN/GLOBULIN RATIO 0.9 (1.1-1.5); ALKALINE PHOSPHATASE 18 IU/L (46-116); ANION GAP 18 (8-16); ASPARTATE AMINO TRANSFERASE 20 U/L (10-37); BILIRUBIN,TOTAL 0.4 MG/DL (0.1-1.0); BLOOD UREA NITROGEN 113 MG/DL (7-18); BUN/CREATININE RATIO 9.8 (5.4-32.0); CALCIUM 7.8 MG/DL (8.5-10.1); CHLORIDE 99 MMOL/L (99-107); CREATININE 11.56 MG/DL (0.60-1.10); GLUCOSE 115 MG/DL (70-104); LACTATE DEHYDROGENASE 271 U/L (85-227); MAGNESIUM 2.4 MG/DL (1.5-2.4); POTASSIUM 3.3 MMOL/L (3.5-5.1); SODIUM 140 MMOL/L (135-145); TOTAL PROTEIN 6.5 G/DL (6.4-8.2); eGFR 5 ML/MIN
[2021-11-12 07:31] LABS: RHEUM FACTOR QUAL REFLEX TITER NEGATIVE (Neg)
[2021-11-12 07:50] LABS: HIV ANTIBODY 1&2 RAPID NON-REACTIVE (Neg)
[2021-11-12] MEDS: K and/or MAG REPLACEMENT MC SCH ×2 (08:00→20:00)
[2021-11-12] MEDS: carvedilol 6.25mg tablet PO SCH ×2 (08:22→20:11)
--- NOTE | 2021-11-12 08:22 | NUR ---
Page Sent PAGER ID: [phone] MESSAGE: eliza Saleem [id number] has an H&H of 7.1 and 20.8. [facility] 1528
[2021-11-12] MEDS: cloNIDine 0.1 mg tablet PO SCH ×3 (08:23→20:11)
[2021-11-12] MEDS: docusate sod 100mg capsule PO SCH ×2 (08:23→20:11)
[2021-11-12] MEDS: amLODIPine 5mg tablet PO SCH (08:26)
[2021-11-12] MEDS ORDERED: heparin 1,000unit/ml 10ml vial 10 ML IV ONE (09:00)
[2021-11-12] MEDS ORDERED: heparin 1,000 units/ml 10ml inj IV ONE (09:00)
[2021-11-12] MEDS ORDERED: EPOETIN ALFA-EPBX 20,000 UNIT/ML 1 ML MDV IV ONE (09:00)
--- NOTE | 2021-11-12 10:39 | NUR ---
Page Sent PAGER ID: [phone] MESSAGE: pt Ken Stiven RM 8091M, LRPC ordered. Pt is due to get TDC placed and dialysis later today, can we wait until dialysis to transfuse blood? [facility] 2025- Dr. Campos called back and said transfusion can happen during dialysis
[2021-11-12] MEDS ORDERED: heparin 1,000unit/ml 10ml vial 10 ML ONE (11:52)
[2021-11-12] MEDS ORDERED: fentaNYL/PF 50MCG/1 ML 2ML syringe ONE (11:52)
[2021-11-12] MEDS ORDERED: LIDOCAINE 1% w/preservative (10 MG/ML) inj. 10mL VIAL ONE (11:52)
[2021-11-12] MEDS ORDERED: ondansetron/PF 4mg/2ml inj ONE (12:50)
[2021-11-12 14:39] LABS: MEAN CORPUSCULAR HEMOGLOBIN 28.3 PG (27.0-31.0); MEAN CORPUSCULAR HGB CONC 34.7 g/dL (33.0-36.5); MEAN CORPUSCULAR VOLUME 81.5 FL (78-98); MEAN PLATELET VOLUME 6.4 FL (7.4-10.4); PLATELET COUNT 135 X10'3 (140-440); RED BLOOD COUNT 2.28 X10'6 (4.70-6.10); RED CELL DISTRIBUTION WIDTH 15.7 % (11.5-14.5); WHITE BLOOD COUNT 5.2 X10'3 (4.5-11.0)
[2021-11-12 14:44] LABS: HEMATOCRIT 18.6 % (42.0-52.0); HEMOGLOBIN 6.4 g/dl (14.0-17.9)
[2021-11-12] MEDS ORDERED: heparin 1,000 units/ml 10ml inj HE ONE ×2 (14:50)
--- NOTE | 2021-11-12 15:04 | NUR ---
Page Sent promotional table spacer PAGER ID: [phone] MESSAGE: CAN YOU PLS CALL ME REGARDING PT IN 27A AND 19. GRECIA BRIGGS
--- NOTE | 2021-11-12 16:39 | NUR ---
PAGER ID: [phone] MESSAGE: Matti MarshallMariam Rosario in Rm 1165W has . [facility]32[facility]
--- NOTE | 2021-11-12 19:30 | NUR ---
Patient refusing to keep BP cuff on for repeated BP measurements, stes it keeps him awake and he didnt sleep last night. BP checked every 4 hours with routine vitals and with BP meds, IV BP bag hang. BP running with in parameters set. Will continue to monitor, television repair teacher informed patient refusing to keep BP monitor on.
[2021-11-12 22:55] LABS: HEMATOCRIT 23.1 % (42.0-52.0); MEAN CORPUSCULAR HEMOGLOBIN 28.6 PG (27.0-31.0); MEAN CORPUSCULAR HGB CONC 34.7 g/dL (33.0-36.5); MEAN CORPUSCULAR VOLUME 82.4 FL (78-98); MEAN PLATELET VOLUME 6.6 FL (7.4-10.4); PLATELET COUNT 159 X10'3 (140-440); RED CELL DISTRIBUTION WIDTH 15.5 % (11.5-14.5); WHITE BLOOD COUNT 6.4 X10'3 (4.5-11.0)
[2021-11-13] MEDS: niCARDipine-NS 40mg/200ml IVPB 250 ML IV SCH ×2 (00:44→04:41)
[2021-11-13 02:00] VITALS: BP 140/84
--- NOTE | 2021-11-13 03:43 | NUR ---
Patient c/o pain in right collar bone from HD cath placement today. RN pulled and offered PRN Tylenol, patient refused stating " that wont work, I dont know what will but that wont, I want something else." RN paged Dr Campos informing of patient c/o pain and request for something other than Tylenol. Patient aware of page to for further orders.
[2021-11-13] MEDS ORDERED: morphine 2 MG/ML inj. syringe IV ONE (03:50)
[2021-11-13 06:00] VITALS: BP_SYST 133; BP_SYST 141; BP_DIAS 86
[2021-11-13] MEDS ORDERED: heparin 1,000 units/ml 10ml inj HE ONE ×2 (06:40)
[2021-11-13] MEDS ORDERED: albumin (human) 25% 100ml IV 100 ML IV PRN (06:40)
[2021-11-13] MEDS ORDERED: EPOETIN ALFA-EPBX 20,000 UNIT/ML 1 ML MDV IV ONE (06:40)
[2021-11-13 06:52] LABS: HEMATOCRIT 22.8 % (42.0-52.0); MEAN CORPUSCULAR HEMOGLOBIN 28.8 PG (27.0-31.0); MEAN CORPUSCULAR HGB CONC 34.9 g/dL (33.0-36.5); MEAN CORPUSCULAR VOLUME 82.6 FL (78-98); MEAN PLATELET VOLUME 7.1 FL (7.4-10.4); PLATELET COUNT 154 X10'3 (140-440); RED BLOOD COUNT 2.77 X10'6 (4.70-6.10); RED CELL DISTRIBUTION WIDTH 15.7 % (11.5-14.5); WHITE BLOOD COUNT 7.2 X10'3 (4.5-11.0)
[2021-11-13 07:09] LABS: ALANINE AMINOTRANSFERASE 23 U/L (12-78); ALBUMIN 2.8 G/DL (3.4-5.0); ALBUMIN/GLOBULIN RATIO 0.8 (1.1-1.5); ALKALINE PHOSPHATASE 17 IU/L (46-116); ANION GAP 11 (8-16); ASPARTATE AMINO TRANSFERASE 18 U/L (10-37); BILIRUBIN,TOTAL 0.4 MG/DL (0.1-1.0); BLOOD UREA NITROGEN 85 MG/DL (7-18); CALCIUM 7.9 MG/DL (8.5-10.1); CHLORIDE 102 MMOL/L (99-107); CREATININE 9.49 MG/DL (0.60-1.10); GLUCOSE 103 MG/DL (70-104); MAGNESIUM 2.1 MG/DL (1.5-2.4); POTASSIUM 3.9 MMOL/L (3.5-5.1); SODIUM 139 MMOL/L (135-145); TOTAL CARBON DIOXIDE 25.6 MMOL/L (24-32); TOTAL PROTEIN 6.1 G/DL (6.4-8.2); eGFR 6 ML/MIN
[2021-11-13] MEDS: K and/or MAG REPLACEMENT MC SCH ×2 (08:00→19:28)
[2021-11-13] MEDS: docusate sod 100mg capsule PO SCH ×2 (08:27→19:28)
[2021-11-13] MEDS: amLODIPine 5mg tablet PO SCH (08:27)
[2021-11-13] MEDS: carvedilol 6.25mg tablet PO SCH ×2 (08:28→19:28)
[2021-11-13] MEDS: pantoprazole 40mg Tablet.DR PO SCH (08:28)
[2021-11-13] MEDS: cloNIDine 0.1 mg tablet PO SCH ×3 (08:29→19:28)
[2021-11-13] MEDS: morphine 2 MG/ML inj. syringe IV PRN (08:35)
[2021-11-13 09:43] LABS: COMPLEMENT C3, SERUM 116 mg/dL (82-167); COMPLEMENT C4, SERUM 28 mg/dL (12-38)
[2021-11-13 11:00] VITALS: BP 148/98
[2021-11-13] MEDS ORDERED: niCARDipine-NS 40mg/200ml IVPB 200 ML IV SCH ×2 (11:17→11:21)
--- NOTE | 2021-11-13 14:57 | NUR ---
Page Sent PAGER ID: [phone] MESSAGE: PATRICK COLLINS [id number] .CAN WE D/C NATHALIA PAIGE [facility] 0324
[2021-11-13 15:16] LABS: HEMATOCRIT 24.7 % (42.0-52.0); HEMOGLOBIN 8.4 g/dl (14.0-17.9); MEAN CORPUSCULAR HGB CONC 34.1 g/dL (33.0-36.5); MEAN CORPUSCULAR VOLUME 82.2 FL (78-98); MEAN PLATELET VOLUME 7.3 FL (7.4-10.4); PLATELET COUNT 178 X10'3 (140-440); RED CELL DISTRIBUTION WIDTH 15.6 % (11.5-14.5); WHITE BLOOD COUNT 6.3 X10'3 (4.5-11.0)
[2021-11-13 16:20] LABS: A/G RATIO 1.1 (0.7-1.7); ALBUMIN 2.9 g/dL (2.9-4.4); ANTINUCLEAR ANTIBODIES Negative (Negative); BETA GLOBULIN 0.9 g/dL (0.7-1.3); GAMMA GLOBULIN 0.9 g/dL (0.4-1.8); GLOBULIN, TOTAL 2.7 g/dL (2.2-3.9); HBSAG SCREEN Negative (Negative); HEP B CORE AB, TOT Negative (Negative); HEPATITIS C ANTIBODY <0.1 s/co ratio (0.0-0.9); M-SPIKE Not Observed g/dL (Not Observed); PROTEIN, TOTAL, SERUM 5.6 g/dL (6.0-8.5)
--- NOTE | 2021-11-13 16:39 | NUR ---
Page Sent PAGER ID: [phone] MESSAGE: Can you please call me re eliza Saleem [id number]. [facility] 0685
[2021-11-13 18:00] VITALS: BP 159/96
[2021-11-13 19:10] LABS: OCCULT BLOOD STOOL NEGATIVE (Neg)
[2021-11-13 22:00] VITALS: BP 154/99
[2021-11-13] MEDS: hydrALAZINE 25 MG tablet PO SCH ×2 (22:37→23:03)
--- NOTE | 2021-11-14 01:19 | NUR ---
Rn informed from tele patient BP elevated, meeting parameters for PRN Hydralazine. When RN entered room patient upset stated someone was changing battery on his tele and the battery was fine and there was no reason for it, patient became agitated using swear words and racial slurs regarding staff that was changing battery. RN informed patient that would not tolerate language and that BP is elevated and if its due to battery incident that RN will let patient rest for 10-15 min and the recheck BP before giving PRN med if not actually needed. Patient still agitated and started with inappropriate behavior again so RN left room to let patient call down and informed the RN would return. Will follow up shortly with patient behavior and BP. Addendum: 11/14/21 at 0124 by Sarah Kenny RN RN informed tele monitor, patient then removed tele leads. Will let patient calm down and try to readdress tele and BP issue and escalate issue if needed.
[2021-11-14 02:00] VITALS: BP 150/93
[2021-11-14] MEDS: morphine 2 MG/ML inj. syringe IV PRN ×2 (02:22→08:37)
[2021-11-14] MEDS: hydrALAZINE 20mg/ml inj. IV PRN (03:31)
[2021-11-14 06:29] LABS: HEMATOCRIT 25.1 % (42.0-52.0); HEMOGLOBIN 8.4 g/dl (14.0-17.9); MEAN CORPUSCULAR HEMOGLOBIN 27.9 PG (27.0-31.0); MEAN CORPUSCULAR HGB CONC 33.3 g/dL (33.0-36.5); MEAN CORPUSCULAR VOLUME 83.6 FL (78-98); MEAN PLATELET VOLUME 7.4 FL (7.4-10.4); PLATELET COUNT 185 X10'3 (140-440); RED CELL DISTRIBUTION WIDTH 15.8 % (11.5-14.5); WHITE BLOOD COUNT 7.6 X10'3 (4.5-11.0)
[2021-11-14 06:40] LABS: ANION GAP 10 (8-16); BLOOD UREA NITROGEN 64 MG/DL (7-18); CHLORIDE 104 MMOL/L (99-107); CREATININE 7.82 MG/DL (0.60-1.10); GLUCOSE 95 MG/DL (70-104); POTASSIUM 3.9 MMOL/L (3.5-5.1); SODIUM 139 MMOL/L (135-145); TOTAL CARBON DIOXIDE 25.3 MMOL/L (24-32)
[2021-11-14 06:41] LABS: ALANINE AMINOTRANSFERASE 23 U/L (12-78); ALBUMIN 2.7 G/DL (3.4-5.0); ALBUMIN/GLOBULIN RATIO 0.8 (1.1-1.5); ALKALINE PHOSPHATASE 17 IU/L (46-116); ASPARTATE AMINO TRANSFERASE 19 U/L (10-37); BILIRUBIN,TOTAL 0.3 MG/DL (0.1-1.0); BUN/CREATININE RATIO 8.2 (5.4-32.0); MAGNESIUM 2.1 MG/DL (1.5-2.4); eGFR 7 ML/MIN
--- NOTE | 2021-11-14 06:49 | NUR ---
Patient in room PCU 3027. I have received report from Sarah BRIGGS and had the opportunity to ask questions and assume patient care.
[2021-11-14 07:00] VITALS: BP 169/100
[2021-11-14] MEDS: cloNIDine 0.1 mg tablet PO SCH ×3 (07:32→20:28)
[2021-11-14] MEDS: amLODIPine 5mg tablet PO SCH (07:33)
[2021-11-14] MEDS: hydrALAZINE 25 MG tablet PO SCH ×3 (07:33→23:03)
[2021-11-14] MEDS: carvedilol 6.25mg tablet PO SCH ×2 (07:34→20:28)
[2021-11-14] MEDS: docusate sod 100mg capsule PO SCH ×2 (07:34→20:28)
[2021-11-14] MEDS: pantoprazole 40mg Tablet.DR PO SCH (07:34)
[2021-11-14] MEDS: K and/or MAG REPLACEMENT MC SCH ×2 (08:00→20:00)
[2021-11-14] MEDS ORDERED: EPOETIN ALFA-EPBX 20,000 UNIT/ML 1 ML MDV IV ONE (10:00)
[2021-11-14] MEDS ORDERED: albumin (human) 25% 100ml IV 100 ML IV PRN (10:00)
[2021-11-14] MEDS ORDERED: heparin 1,000 units/ml 10ml inj HE ONE ×2 (10:05)
[2021-11-14 11:00] VITALS: BP 128/86
--- NOTE | 2021-11-14 11:06 | NUR ---
Initial: Pt admit for hematuria and anemia with unknown etiology. Pt with h/o stage IV renal failure, receiving dialysis this admit with total 3.5 L fluid removed from dialysis per I&O. Pt on a renal diet and eating well documented with 100% PO intake throughout LOS meeting estimated nutrient needs. Pt documented as constipated though LBM 11/13, large per EMR. Pt receiving routine bowel care BID. No nutrition intervention implemented at this time. Will continue to follow. Recommendations: 1) Continue renal diet 2) Monitor need for additional protein for satiety 3) Routine bowel care 4) Scaled weight this admit; subsequent scaled weights with dialysis Addendum: 11/14/21 at [address] Amended: Links added.
--- NOTE | 2021-11-14 11:21 | NUR ---
patient very unpleasant to staff and difficult to work with. patient has been clearly informed of plan of care, regular checks of vital signs completed. patients B/P 0630hrs 169/100. patient made priority and medicated with scheduled meds.. B/P rechecked was 129/79. will continue to monitor.
[2021-11-14 14:03] LABS: HEMATOCRIT 24.1 % (42.0-52.0); HEMOGLOBIN 8.1 g/dl (14.0-17.9); MEAN CORPUSCULAR HEMOGLOBIN 28.1 PG (27.0-31.0); MEAN CORPUSCULAR HGB CONC 33.8 g/dL (33.0-36.5); MEAN CORPUSCULAR VOLUME 83.3 FL (78-98); MEAN PLATELET VOLUME 6.8 FL (7.4-10.4); PLATELET COUNT 180 X10'3 (140-440); RED BLOOD COUNT 2.89 X10'6 (4.70-6.10); RED CELL DISTRIBUTION WIDTH 15.8 % (11.5-14.5); WHITE BLOOD COUNT 6.5 X10'3 (4.5-11.0)
[2021-11-14 15:00] VITALS: BP 155/95
[2021-11-14] MEDS: oxymetazoline 15 ML nasal spray NS SCH ×2 (17:20→23:03)
--- NOTE | 2021-11-14 17:25 | NUR ---
patient bladder scanned post void 66mls observed . Currently having dialysis .will continue to monitor
[2021-11-14 18:00] VITALS: BP 169/109
--- NOTE | 2021-11-14 18:13 | NUR ---
Problems reprioritized. Patient report given, questions answered & plan of care reviewed with BRIGITTE Smith [].
[2021-11-14 23:00] VITALS: BP 139/96
[2021-11-15 02:00] VITALS: BP 159/90
[2021-11-15] MEDS: morphine 2 MG/ML inj. syringe IV PRN (02:38)
[2021-11-15 06:56] LABS: ALANINE AMINOTRANSFERASE 21 U/L (12-78); ALBUMIN 2.6 G/DL (3.4-5.0); ALBUMIN/GLOBULIN RATIO 0.7 (1.1-1.5); ALKALINE PHOSPHATASE 17 IU/L (46-116); ANION GAP 11 (8-16); ASPARTATE AMINO TRANSFERASE 16 U/L (10-37); BILIRUBIN,TOTAL 0.3 MG/DL (0.1-1.0); BLOOD UREA NITROGEN 54 MG/DL (7-18); BUN/CREATININE RATIO 7.3 (5.4-32.0); CALCIUM 8.2 MG/DL (8.5-10.1); CHLORIDE 102 MMOL/L (99-107); CREATININE 7.35 MG/DL (0.60-1.10); GLUCOSE 94 MG/DL (70-104); MAGNESIUM 2.1 MG/DL (1.5-2.4); POTASSIUM 4.2 MMOL/L (3.5-5.1); SODIUM 139 MMOL/L (135-145); TOTAL CARBON DIOXIDE 26.1 MMOL/L (24-32); TOTAL PROTEIN 6.1 G/DL (6.4-8.2); eGFR 8 ML/MIN
[2021-11-15 07:07] VITALS: BP 178/89
[2021-11-15] MEDS: cloNIDine 0.1 mg tablet PO SCH ×2 (07:11→12:51)
[2021-11-15] MEDS: amLODIPine 5mg tablet PO SCH (07:12)
[2021-11-15] MEDS: docusate sod 100mg capsule PO SCH (07:12)
[2021-11-15] MEDS: oxymetazoline 15 ML nasal spray NS SCH (07:13)
[2021-11-15] MEDS: pantoprazole 40mg Tablet.DR PO SCH (07:13)
[2021-11-15] MEDS: hydrALAZINE 25 MG tablet PO SCH ×2 (07:23→15:39)
[2021-11-15] MEDS: carvedilol 6.25mg tablet PO SCH (07:23)
[2021-11-15] MEDS: K and/or MAG REPLACEMENT MC SCH (08:00)
[2021-11-15 11:00] VITALS: BP 135/95
[2021-11-15 15:31] VITALS: BP 139/85
[2021-11-15 15:39] VITALS: BP_SYST 139
--- NOTE | 2021-11-15 17:19 | NUR ---
PATIENT REFUSING TO WEAR TELE MONITOR. STATES HE IS NOT BEING TREATED WELL AND WOULD RATHER GO TO [facility].
--- NOTE | 2021-11-15 18:01 | NUR ---
[id number] A/ox4, BP elevated in AM, once am bp meds given bp came down to 130's. Pt c/o head ache, prn tylenol given with relief of pain. Pt is easily agitated, impatient and demanding. Pt is independent in room, had good appetite. Pt showered this afternoon and refused to have telemetry monitory put back on.
--- NOTE | 2021-11-15 19:13 | NUR ---
Received report on patient however as before care could be assumed was informed by charge nurse and resource nurse that patient left AMA. Per the resource nurse the patients IV was removed prior to leaving and the resource and charge hand filled out the appropriate paperwork. I did not have a chance to see/assess the patient and do not assume care for this patient.
--- NOTE | 2021-11-16 06:30 | NUR ---
11/15/21 [id number] RN/Patient interactions: 0630 CASEWORK SUPERVISOR checked BP on patient, patients BP was 178/89, HR 76. 0800: went into patients room to give BP medications due to elevated BP. Pt was side lying on his left side with his arms bend in front of him. Pt appeared to be sleeping. This RN logged onto the computer and quietly reached over the patient to scan his armband, after scanning the arm band patient yelled at RN, "You scanned that into my eye, why didnt you let me know?!" Patient went on and on about how I pointed the scanner into his eye. I appologized and asked if we could please not start the day like this. Pt continue to go on and on. I apologized again and asked if we could start over and not begin our day like this. Pt agreed to put it behind us and started to calm down. Scanned all meds, and gave to patient. Clonidine was due at 1300: Went into patients room. He was lying supine in bed with his bedside table over bed with a pitcher full of water on the table. I scanned patients arm band, then scanned his med and handed the patient his cupful of medications for his blood pressure. He looked at his cup of meds and in a loud voice said, "What do you expect me to do with these meds?" I replied, "take them." HE said, "With What?!" I replied, "with your water on the table." The patient yelled, "That water is old! Its been there all day! I need new water!" I calmly responded, "I didn't know that, how would I know that? You need to ask me for water if that's what you want". Pt yelled, "FORGET IT!!" I responded "ok" and left the room. Shortly after I notified the discharge planner of our conversation. Around 1700 I walk into the patients room and he is sitting on the side of the bed. Patient says in a demanding voice, "Im going to shower!" I was surprised by his statement and had a look of surprise on my face. The patient did not like the look on my face and said, "Why are you looking like that!? What's that look on you face?!" I replied in a calm voice, "most people ask if they can shower, you have 2 IV's and a hemodialysis catheter and your on telemetry. You need a doctors ok in order to shower." Pt replied, "I dont care, IM GOING TO SHOWER!". I replied, "let me look and see if its okay". He responded, "I DON'T CARE IM GOING TO SHOWER!". I responded "well then I need to wrap your IVs and cover your central line." Patient responded, "I showered yesterday and it didnt work, there's no need to cover it, it will just fall off in the shower!!" I responded, "I cannot let you shower unless its covered, the IV's must be covered and the Central line must be covered or it will put you at risk for infection." Pt responded, "Its just going to fall off!!" pt continued to grumble as the CASEWORK SUPERVISOR and I wrapped and covered his 2 PIV and right chest catheter. Pt was set up for shower and then showered independently. Pt took 15minute shower. When he was done I asked the discharge planner if he could put the telemetry back on the patient. associate asked CASEWORK SUPERVISOR to apply telemetry to patient. CASEWORK SUPERVISOR went into room and patient refused to wear the telemetry. associate was notified. At 1820 (change of shift) this RN and oncoming Rn walked into the room. I introduced patient to RN. Pt said "Hi." After we had left the room, patient had apparently left the room, went downstairs and left the building. Pt was brought back into his room by security.
[2021-11-16] MEDS ORDERED: albumin (human) 25% 100ml IV 100 ML IV PRN (08:00)
[2021-11-16] MEDS ORDERED: heparin 1,000 units/ml 10ml inj HE ONE ×2 (08:00)
[2021-11-16] MEDS ORDERED: heparin 1,000 units/ml 10ml inj IV ONE (08:00)
[2021-11-16] MEDS ORDERED: heparin 1,000unit/ml 10ml vial 10 ML IV ONE (08:00)
[2021-11-16] MEDS ORDERED: EPOETIN ALFA-EPBX 20,000 UNIT/ML 1 ML MDV IV ONE (08:00)
[2021-11-16 16:32] LABS: ATYPICAL PANCA <1:20 titer (Neg:<1:20); CYTOPLASMIC (C-ANCA) <1:20 titer (Neg:<1:20); PERINUCLEAR (P-ANCA) <1:20 titer (Neg:<1:20)
== END 2021-11-15 19:00 | disposition left against medical advice (07) | DRG 199 ==
LOC: ER 14:33 → ED HOLD 18:30 → PCU 3S 22:20
PROVIDERS: ADMIT Family Medicine; ATTEND Family Medicine
PROC: 30233N1 Transfusion of Nonautologous Red Blood Cells into Peripheral Vein, Percutaneous Approach (ICD-10-PCS; principal; 2021-11-10)
PROC: 0JH63XZ Insertion of Tunneled Vascular Access Device into Chest Subcutaneous Tissue and Fascia, Percutaneous Approach (ICD-10-PCS; 2021-11-12)
PROC: 02H633Z Insertion of Infusion Device into Right Atrium, Percutaneous Approach (ICD-10-PCS; 2021-11-12)
PROC: B548ZZA Ultrasonography of Superior Vena Cava, Guidance (ICD-10-PCS; 2021-11-12)
PROC: B5181ZA Fluoroscopy of Superior Vena Cava using Low Osmolar Contrast, Guidance (ICD-10-PCS; 2021-11-12)
PROC: 5A1D70Z Performance of Urinary Filtration, Intermittent, Less than 6 Hours Per Day (ICD-10-PCS; 2021-11-12)
PROC: 5A1D70Z Performance of Urinary Filtration, Intermittent, Less than 6 Hours Per Day (ICD-10-PCS; 2021-11-13)
PROC: 5A1D70Z Performance of Urinary Filtration, Intermittent, Less than 6 Hours Per Day (ICD-10-PCS; 2021-11-14)
DX: I16.1 Hypertensive emergency (principal); I21.A1 Myocardial infarction type 2; I50.30 Unspecified diastolic (congestive) heart failure; N17.9 Acute kidney failure, unspecified; D64.9 Anemia, unspecified; E78.5 Hyperlipidemia, unspecified; F17.200 Nicotine dependence, unspecified, uncomplicated; Z60.2 Problems related to living alone; N26.1 Atrophy of kidney (terminal); F12.90 Cannabis use, unspecified, uncomplicated; F15.10 Other stimulant abuse, uncomplicated; I13.2 Hypertensive heart and chronic kidney disease with heart failure and with stage 5 chronic kidney disease, or end stage renal disease; R30.0 Dysuria; N18.5 Chronic kidney disease, stage 5; J44.9 Chronic obstructive pulmonary disease, unspecified; N28.1 Cyst of kidney, acquired; R31.0 Gross hematuria; Z82.49 Family history of ischemic heart disease and other diseases of the circulatory system; Z86.73 Personal history of transient ischemic attack (TIA), and cerebral infarction without residual deficits; Z87.442 Personal history of urinary calculi; Z90.49 Acquired absence of other specified parts of digestive tract; Z56.0 Unemployment, unspecified; Z79.899 Other long term (current) drug therapy; Z79.82 Long term (current) use of aspirin
CPT/HCPCS: 36415; 36430; 36558; 71045; 74176; 76937; 77001; 80053; 80305; 81001; 82272; 82595; 83615; 83735; 83880; 84132; 84155; 84165; 84439; 84443; 84484; 85025; 85027; 85610; 85651; 85730; 86038; 86060; 86160; 86256; 86430; 86592; 86703; 86704; 86706; 86803; 86885; 86900; 86901; 86920; 87081; 87088; 87340; 93306; 94760; 96365; 96375; 97116; 97161; 97530; 99285; A9270; C1750; C1769; C1894; G0257; G0378; J0360; J1644; J2060; J2150; J2270; J2405; J3010; J3490; J7070; P9016; Q4081

== ENCOUNTER 2021-11-16 11:17 | Inpatient (IN) | payer MEDICAID ==
[~2021-11-16] VITALS: Ht 170.2 cm; Wt 85.9 kg
[~2021-11-16 11:17] MED LIST changes: +AMLO10TA13 PO; -ATOR20TA PO; -CARV-49 PO; -CARV3.12 PO; -CARV3.122 PO; +CARV6.253 PO; +CLON-330 PO; -CLON0.1T2 PO; -CLON0.2T PO; -CLOP75TA33 PO; -LEVO500T90 PO; -LISI-642 PO
[2021-11-16 12:27] LABS: BASOPHILS % (AUTO) 0.4 % (0-1); EOSINOPHILS # (AUTO) 0.1 X10'3 (0-0.9); HEMATOCRIT 27.1 % (42.0-52.0); HEMOGLOBIN 9.2 g/dl (14.0-17.9); LYMPHOCYTES # (AUTO) 0.5 X10'3 (1.1-4.8); LYMPHOCYTES % (AUTO) 7.6 % (21-51); MEAN CORPUSCULAR HEMOGLOBIN 28.7 PG (27.0-31.0); MEAN CORPUSCULAR VOLUME 84.6 FL (78-98); MEAN PLATELET VOLUME 7.1 FL (7.4-10.4); MONOCYTES # (AUTO) 0.7 X10'3 (0-0.9); MONOCYTES % (AUTO) 10.9 % (2-12); NEUTROPHILS # (AUTO) 5.4 X10'3 (1.8-7.7); NEUTROPHILS % (AUTO) 79.1 % (42-75); PLATELET COUNT 279 X10'3 (140-440); RED BLOOD COUNT 3.21 X10'6 (4.70-6.10); RED CELL DISTRIBUTION WIDTH 15.5 % (11.5-14.5); WHITE BLOOD COUNT 6.9 X10'3 (4.5-11.0)
[2021-11-16 12:35] LABS: ANION GAP 12 (8-16); BILIRUBIN,TOTAL 0.4 MG/DL (0.1-1.0); BLOOD UREA NITROGEN 73 MG/DL (7-18); BUN/CREATININE RATIO 7.9 (5.4-32.0); CALCIUM 8.6 MG/DL (8.5-10.1); CHLORIDE 103 MMOL/L (99-107); GLUCOSE 93 MG/DL (70-104); POTASSIUM 4.4 MMOL/L (3.5-5.1); SODIUM 139 MMOL/L (135-145); TOTAL CARBON DIOXIDE 24.5 MMOL/L (24-32); eGFR 6 ML/MIN
[2021-11-16 12:36] LABS: ALANINE AMINOTRANSFERASE 25 U/L (12-78); ALBUMIN 3.2 G/DL (3.4-5.0); ALBUMIN/GLOBULIN RATIO 0.8 (1.1-1.5); ALKALINE PHOSPHATASE 22 IU/L (46-116); ASPARTATE AMINO TRANSFERASE 18 U/L (10-37); TOTAL PROTEIN 7.2 G/DL (6.4-8.2)
[2021-11-16] MEDS ORDERED: ondansetron/PF 4mg/2ml inj IV PRN (15:25)
[2021-11-16] MEDS ORDERED: HYDROcodone/acetaminophen 5mg/325mg tablet PO PRN (15:25)
[2021-11-16] MEDS ORDERED: acetaminophen 325mg tablet PO PRN (15:25)
[2021-11-16] MEDS ORDERED: magnesium hydroxide 30ml (MOM) UD suspension PO PRN (15:25)
[2021-11-16] MEDS ORDERED: magnesium 2GM in 50ml NS 50 ML IV PRN (15:25)
[2021-11-16] MEDS ORDERED: ipratropium/albuterol 3ml nebule NEB PRN (15:25)
[2021-11-16] MEDS ORDERED: potassium CL 10mEq/100ml bag 100 ML IV PRN (15:25)
[2021-11-16] MEDS ORDERED: POTASSIUM BICARB 20meq eff tab 20 MEQ TABLET.EFF PO PRN ×2 (15:25)
[2021-11-16] MEDS ORDERED: magnesium Cl slow-release 64mg tablet PO PRN (15:25)
[2021-11-16] MEDS ORDERED: mag hydrox/Alum hydrox/simeth 30ml oral suspension PO PRN (15:25)
[2021-11-16] MEDS ORDERED: magnesium 4gm in 100ml NS 100 ML IV PRN (15:25)
[2021-11-16] MEDS ORDERED: hydrALAZINE 20mg/ml inj. IV PRN (15:35)
--- NOTE | 2021-11-16 15:48 | NUR ---
ASSISTING RN WITH PT CARE, STARTED IV ON 2ND ATTEMPT TO LEFT WRIST
[2021-11-16 16:08] LABS: MAGNESIUM 2.3 MG/DL (1.5-2.4); POTASSIUM 4.9 MMOL/L (3.5-5.1)
[2021-11-16] MEDS: amLODIPine 5mg tablet PO SCH (16:10)
--- NOTE | 2021-11-16 17:12 | NUR ---
received report from jose mcclure
--- NOTE | 2021-11-16 17:14 | NUR ---
report called to Mirna BRIGGS
--- NOTE | 2021-11-16 17:39 | NUR ---
received report from jose mcclure
[2021-11-16 17:41] VITALS: BP 201/109
--- NOTE | 2021-11-16 18:13 | NUR ---
gave report to jose treviño
--- NOTE | 2021-11-16 18:13 | NUR ---
Patient in room [facility]TH[facility] 4021A. I have received report from BRIGITTE Bradley and had the opportunity to ask questions and assume patient care.
[2021-11-16 18:47] VITALS: BP 184/98
[2021-11-16] MEDS: carvedilol 6.25mg tablet PO SCH (19:26)
[2021-11-16] MEDS: docusate sod 100mg capsule PO SCH (19:26)
[2021-11-16] MEDS: heparin, porcine 5000 units/ml vial SQ SCH (19:27)
[2021-11-16] MEDS: K and/or MAG REPLACEMENT MC SCH (19:29)
[2021-11-16 20:30] VITALS: BP 178/94
[2021-11-16] MEDS: cloNIDine 0.1 mg tablet PO SCH (20:42)
[2021-11-16 22:00] VITALS: BP 174/93
--- NOTE | 2021-11-16 22:43 | NUR ---
PAGER ID: [phone] MESSAGE: [phone] BRIGITTE Marcos for Gogo Witt in [id number]. Her K is 3.4 Can I please get order for replacement protocol? Thanks. Another patient Ken Saleem in 4021A BP high 174/93. What to do? Thanks
--- NOTE | 2021-11-17 00:12 | NUR ---
Nighttime Hospitalist advised to administer PRN Hydralazine if the BP goes higher than what it is; also stated that 174/93 is normal for an ESRD patient. Will continue to monitor.
[2021-11-17] MEDS: HYDROcodone/acetaminophen 10/325mg tab PO PRN ×3 (03:51→22:55)
[2021-11-17 06:00] VITALS: BP 152/89
--- NOTE | 2021-11-17 06:03 | NUR ---
Problems reprioritized. Patient report given, questions answered & plan of care reviewed with BRIGITTE Bradley.
--- NOTE | 2021-11-17 06:05 | NUR ---
RECEIVED REPORT FROM BRIGITTE BRYAN
[2021-11-17 06:34] LABS: BASOPHILS % (AUTO) 0.3 % (0-1); EOSINOPHILS # (AUTO) 0.1 X10'3 (0-0.9); EOSINOPHILS % (AUTO) 2.2 % (0-6); HEMATOCRIT 24.6 % (42.0-52.0); HEMOGLOBIN 8.2 g/dl (14.0-17.9); LYMPHOCYTES # (AUTO) 0.8 X10'3 (1.1-4.8); LYMPHOCYTES % (AUTO) 11.3 % (21-51); MEAN CORPUSCULAR HEMOGLOBIN 28.1 PG (27.0-31.0); MEAN CORPUSCULAR HGB CONC 33.5 g/dL (33.0-36.5); MEAN PLATELET VOLUME 7.2 FL (7.4-10.4); MONOCYTES # (AUTO) 0.7 X10'3 (0-0.9); MONOCYTES % (AUTO) 10.2 % (2-12); NEUTROPHILS # (AUTO) 5.1 X10'3 (1.8-7.7); PLATELET COUNT 273 X10'3 (140-440); RED BLOOD COUNT 2.93 X10'6 (4.70-6.10); RED CELL DISTRIBUTION WIDTH 15.6 % (11.5-14.5); WHITE BLOOD COUNT 6.7 X10'3 (4.5-11.0)
[2021-11-17 06:38] LABS: ALANINE AMINOTRANSFERASE 22 U/L (12-78); ALBUMIN 2.9 G/DL (3.4-5.0); ALBUMIN/GLOBULIN RATIO 0.8 (1.1-1.5); ALKALINE PHOSPHATASE 18 IU/L (46-116); ANION GAP 12 (8-16); ASPARTATE AMINO TRANSFERASE 14 U/L (10-37); BILIRUBIN,TOTAL 0.4 MG/DL (0.1-1.0); BLOOD UREA NITROGEN 82 MG/DL (7-18); BUN/CREATININE RATIO 8.2 (5.4-32.0); CALCIUM 8.5 MG/DL (8.5-10.1); CHLORIDE 102 MMOL/L (99-107); CREATININE 9.95 MG/DL (0.60-1.10); GLUCOSE 93 MG/DL (70-104); MAGNESIUM 2.1 MG/DL (1.5-2.4); POTASSIUM 4.6 MMOL/L (3.5-5.1); SODIUM 136 MMOL/L (135-145); TOTAL CARBON DIOXIDE 22.1 MMOL/L (24-32); TOTAL PROTEIN 6.4 G/DL (6.4-8.2); eGFR 6 ML/MIN
[2021-11-17] MEDS: cloNIDine 0.1 mg tablet PO SCH ×3 (07:32→19:50)
[2021-11-17] MEDS: docusate sod 100mg capsule PO SCH ×2 (07:33→19:50)
[2021-11-17] MEDS: carvedilol 6.25mg tablet PO SCH ×2 (07:34→19:50)
[2021-11-17] MEDS: amLODIPine 5mg tablet PO SCH (07:35)
[2021-11-17] MEDS: heparin, porcine 5000 units/ml vial SQ SCH ×2 (07:37→19:50)
[2021-11-17] MEDS: K and/or MAG REPLACEMENT MC SCH ×2 (08:00→19:51)
[2021-11-17 10:00] VITALS: BP 151/85
[2021-11-17] MEDS ORDERED: heparin 1,000 units/ml 10ml inj IV ONE (10:40)
[2021-11-17] MEDS ORDERED: EPOETIN ALFA-EPBX 20,000 UNIT/ML 1 ML MDV IV ONE (10:40)
[2021-11-17] MEDS ORDERED: heparin 1,000unit/ml 10ml vial 10 ML IV ONE (10:40)
[2021-11-17] MEDS ORDERED: normal saline 1000ml 100 ML IV PRN (10:40)
[2021-11-17] MEDS ORDERED: heparin 1,000 units/ml 10ml inj HE ONE ×2 (10:45)
--- NOTE | 2021-11-17 13:00 | NUR ---
held 1300 bp med at this time due to pt receiving dialysis, dialysis nurse requested to hold this medication due to the last time the pt had dialysis he have a significant decrease in blood pressure during dialysis
[2021-11-17 14:00] VITALS: BP 151/99
[2021-11-17 15:18] LABS: FERRITIN 76 NG/ML (26-388)
[2021-11-17 15:24] LABS: % IRON SATURATION 11 % (11-46); IRON 33 UG/DL (53-167); TOTAL IRON BINDING CAPACITY 314 UG/DL (259-388)
[2021-11-17 16:10] VITALS: BP 154/90
[2021-11-17] MEDS: hydrALAZINE 25 MG tablet PO SCH (16:10)
--- NOTE | 2021-11-17 18:16 | NUR ---
gave report to jose rossi
[2021-11-17 22:00] VITALS: BP 151/91
[2021-11-18 02:00] VITALS: BP 145/91
[2021-11-18] MEDS: hydrALAZINE 25 MG tablet PO SCH ×4 (02:01→23:18)
[2021-11-18 06:37] LABS: BASOPHILS % (AUTO) 0.3 % (0-1); EOSINOPHILS # (AUTO) 0.1 X10'3 (0-0.9); HEMATOCRIT 25.3 % (42.0-52.0); HEMOGLOBIN 8.5 g/dl (14.0-17.9); LYMPHOCYTES # (AUTO) 0.8 X10'3 (1.1-4.8); MEAN CORPUSCULAR HEMOGLOBIN 28.2 PG (27.0-31.0); MEAN CORPUSCULAR HGB CONC 33.5 g/dL (33.0-36.5); MEAN PLATELET VOLUME 7.3 FL (7.4-10.4); MONOCYTES # (AUTO) 0.7 X10'3 (0-0.9); MONOCYTES % (AUTO) 11.4 % (2-12); NEUTROPHILS # (AUTO) 4.5 X10'3 (1.8-7.7); NEUTROPHILS % (AUTO) 73.3 % (42-75); PLATELET COUNT 276 X10'3 (140-440); RED BLOOD COUNT 3.01 X10'6 (4.70-6.10); WHITE BLOOD COUNT 6.2 X10'3 (4.5-11.0)
[2021-11-18 06:53] VITALS: BP 173/97
[2021-11-18 06:57] LABS: ALANINE AMINOTRANSFERASE 20 U/L (12-78); ALBUMIN 2.7 G/DL (3.4-5.0); ALBUMIN/GLOBULIN RATIO 0.7 (1.1-1.5); ALKALINE PHOSPHATASE 18 IU/L (46-116); ANION GAP 9 (8-16); ASPARTATE AMINO TRANSFERASE 13 U/L (10-37); BILIRUBIN,TOTAL 0.4 MG/DL (0.1-1.0); BLOOD UREA NITROGEN 49 MG/DL (7-18); BUN/CREATININE RATIO 6.8 (5.4-32.0); CALCIUM 8.5 MG/DL (8.5-10.1); CHLORIDE 101 MMOL/L (99-107); CREATININE 7.22 MG/DL (0.60-1.10); GLUCOSE 97 MG/DL (70-104); MAGNESIUM 1.9 MG/DL (1.5-2.4); POTASSIUM 4.5 MMOL/L (3.5-5.1); SODIUM 136 MMOL/L (135-145); TOTAL CARBON DIOXIDE 25.9 MMOL/L (24-32); TOTAL PROTEIN 6.4 G/DL (6.4-8.2); eGFR 8 ML/MIN
[2021-11-18] MEDS: docusate sod 100mg capsule PO SCH ×2 (07:10→20:03)
[2021-11-18] MEDS: amLODIPine 5mg tablet PO SCH (07:11)
[2021-11-18] MEDS: losartan 50mg tablet PO SCH (07:11)
[2021-11-18] MEDS: cloNIDine 0.1 mg tablet PO SCH ×3 (07:11→20:04)
[2021-11-18] MEDS: carvedilol 6.25mg tablet PO SCH ×2 (07:11→20:04)
[2021-11-18] MEDS: heparin, porcine 5000 units/ml vial SQ SCH ×2 (07:12→20:00)
[2021-11-18] MEDS: K and/or MAG REPLACEMENT MC SCH ×2 (08:00→20:00)
[2021-11-18 10:06] VITALS: BP 126/69
[2021-11-18 13:10] LABS: CLARITY,URINE CLEAR (Clear); GLUCOSE, URINE NEGATIVE (Neg); KETONES,URINE NEGATIVE (Neg); LEUKOCYTE ESTERASE ,URINE NEGATIVE (Neg); NITRITES, URINE NEGATIVE (Neg); OCCULT BLOOD,URINE NEGATIVE (Neg); PROTEIN,URINE 100 mg/dl (Neg); UROBILINOGEN,URINE 0.2 E.U/dL (0.2-1.0)
[2021-11-18 13:12] LABS: COLOR,URINE STRAW (Yellow); UA COLLECTION TYPE NON-SPECIFIED
[2021-11-18 13:16] LABS: SQUAMOUS EPITHELIAL CELL,UR FEW /LPF (FEW)
[2021-11-18 13:17] LABS: BACTERIA,URINE FEW /HPF (Neg); RBC,URINE 0-2 /HPF (0-2)
[2021-11-18] MEDS ORDERED: heparin 1,000unit/ml 10ml vial 10 ML IV ONE (13:55)
[2021-11-18] MEDS ORDERED: EPOETIN ALFA-EPBX 20,000 UNIT/ML 1 ML MDV IV ONE (13:55)
[2021-11-18] MEDS ORDERED: albumin (human) 25% 100ml IV 100 ML IV PRN (13:55)
[2021-11-18] MEDS ORDERED: heparin 1,000 units/ml 10ml inj IV ONE (13:55)
[2021-11-18] MEDS ORDERED: heparin 1,000 units/ml 10ml inj HE ONE ×2 (14:00)
[2021-11-18 18:00] VITALS: BP 123/78
--- NOTE | 2021-11-18 18:15 | NUR ---
Patient in room [facility]THO 4021A. I have received report from BIRGITTE Sen and had the opportunity to ask questions and assume patient care.
--- NOTE | 2021-11-18 18:23 | NUR ---
Problems reprioritized. Patient report given, questions answered & plan of care reviewed with BRIGITTE Marcos.
[2021-11-18] MEDS: HYDROcodone/acetaminophen 10/325mg tab PO PRN (21:25)
[2021-11-18 22:00] VITALS: BP 169/91
[2021-11-19 02:35] VITALS: BP 126/74
--- NOTE | 2021-11-19 06:05 | NUR ---
Problems reprioritized. Patient report given, questions answered & plan of care reviewed with BRIGITTE Sen.
[2021-11-19 06:46] LABS: BASOPHILS % (AUTO) 0.4 % (0-1); EOSINOPHILS # (AUTO) 0.1 X10'3 (0-0.9); EOSINOPHILS % (AUTO) 2.2 % (0-6); HEMATOCRIT 25.2 % (42.0-52.0); HEMOGLOBIN 8.4 g/dl (14.0-17.9); LYMPHOCYTES # (AUTO) 0.8 X10'3 (1.1-4.8); LYMPHOCYTES % (AUTO) 14.2 % (21-51); MEAN CORPUSCULAR HEMOGLOBIN 28.2 PG (27.0-31.0); MEAN CORPUSCULAR HGB CONC 33.5 g/dL (33.0-36.5); MEAN CORPUSCULAR VOLUME 84.2 FL (78-98); MEAN PLATELET VOLUME 7.1 FL (7.4-10.4); MONOCYTES # (AUTO) 0.6 X10'3 (0-0.9); MONOCYTES % (AUTO) 10.8 % (2-12); NEUTROPHILS # (AUTO) 3.9 X10'3 (1.8-7.7); NEUTROPHILS % (AUTO) 72.4 % (42-75); PLATELET COUNT 280 X10'3 (140-440); RED BLOOD COUNT 2.99 X10'6 (4.70-6.10); WHITE BLOOD COUNT 5.3 X10'3 (4.5-11.0)
[2021-11-19 06:50] LABS: ALANINE AMINOTRANSFERASE 21 U/L (12-78); ALBUMIN 2.5 G/DL (3.4-5.0); ALBUMIN/GLOBULIN RATIO 0.7 (1.1-1.5); ALKALINE PHOSPHATASE 14 IU/L (46-116); ANION GAP 15 (8-16); ASPARTATE AMINO TRANSFERASE 17 U/L (10-37); BILIRUBIN,TOTAL 0.3 MG/DL (0.1-1.0); BLOOD UREA NITROGEN 69 MG/DL (7-18); BUN/CREATININE RATIO 7.6 (5.4-32.0); CALCIUM 8.3 MG/DL (8.5-10.1); CHLORIDE 99 MMOL/L (99-107); CREATININE 9.08 MG/DL (0.60-1.10); GLUCOSE 144 MG/DL (70-104); POTASSIUM 4.7 MMOL/L (3.5-5.1); SODIUM 137 MMOL/L (135-145); TOTAL CARBON DIOXIDE 23.2 MMOL/L (24-32); TOTAL PROTEIN 6.1 G/DL (6.4-8.2); eGFR 6 ML/MIN
[2021-11-19 06:54] VITALS: BP 140/71
[2021-11-19] MEDS: docusate sod 100mg capsule PO SCH ×2 (07:50→19:32)
[2021-11-19] MEDS: heparin, porcine 5000 units/ml vial SQ SCH ×2 (07:53→19:32)
[2021-11-19] MEDS: losartan 50mg tablet PO SCH (08:00)
[2021-11-19] MEDS: carvedilol 6.25mg tablet PO SCH ×2 (08:00→19:31)
[2021-11-19] MEDS: K and/or MAG REPLACEMENT MC SCH ×2 (08:00→20:00)
[2021-11-19] MEDS: hydrALAZINE 25 MG tablet PO SCH ×2 (08:00→15:52)
[2021-11-19] MEDS: amLODIPine 5mg tablet PO SCH (08:00)
[2021-11-19] MEDS: cloNIDine 0.1 mg tablet PO SCH ×3 (08:00→19:31)
--- NOTE | 2021-11-19 09:17 | NUR ---
Kirsten Crespo at bedside. Addendum: 11/19/21 at 0956 by Francy Hector RN gsa coordinatorBRIGITTE Crespo is at bedside.
[2021-11-19 09:50] VITALS: BP 143/83
[2021-11-19 12:24] LABS: HBSAG SCREEN Negative (Negative)
[2021-11-19 16:22] LABS: HEMOGLOBIN A1C 5.3 % (4.5-6.2)
[2021-11-19 16:27] LABS: CHOL/HDL RATIO 5.3 (0.00-4.99); CHOLESTEROL 250 MG/DL (0-200); HDL CHOLESTEROL 47 MG/DL (35-60); LDL CHOLESTEROL 163 MG/DL (50-100); TRIGLYCERIDES 154 MG/DL (20-135)
--- NOTE | 2021-11-19 17:19 | NUR ---
PAGER ID: [phone] MESSAGE: [phone]- Ken Saleem- pt agitated and wanting to leave. states he wants to be dc. explained to him that we are waiting for [facility] placement for dc. pt stated, "well you better find someone to discharge me then."- Francy [phone]
--- NOTE | 2021-11-19 17:45 | NUR ---
Called and spoke to Dr. Huynh regarding patient wanting to leave. Dr. Huynh asked if patient would stay until at least tomorrow so patient can have dialysis again tomorrow and then be dc. Asked patient and patient is agreeable.
[2021-11-19 18:00] VITALS: BP 163/84
--- NOTE | 2021-11-19 18:31 | NUR ---
Problems reprioritized. Patient report given, questions answered & plan of care reviewed with BRIGITTE Burns.
--- NOTE | 2021-11-19 18:32 | NUR ---
Patient in room ORTHO 4021. I have received report from TEJAS BRIGGS and had the opportunity to ask questions and assume patient care.
[2021-11-19] MEDS: HYDROcodone/acetaminophen 10/325mg tab PO PRN (19:37)
[2021-11-19 22:00] VITALS: BP 129/79
[2021-11-20] MEDS: hydrALAZINE 25 MG tablet PO SCH ×3 (00:27→16:11)
--- NOTE | 2021-11-20 06:26 | NUR ---
Problems reprioritized. Patient report given, questions answered & plan of care reviewed with ZEN BRIGGS.
--- NOTE | 2021-11-20 06:43 | NUR ---
Patient in room ORTHO 4021. I have received report from BRIGITTE Burns and had the opportunity to ask questions and assume patient care.
[2021-11-20] MEDS ORDERED: EPOETIN ALFA-EPBX 20,000 UNIT/ML 1 ML MDV IV ONE (07:00)
[2021-11-20] MEDS ORDERED: albumin (human) 25% 100ml IV 100 ML IV PRN (07:00)
[2021-11-20] MEDS ORDERED: heparin 1,000 units/ml 10ml inj IV ONE (07:00)
[2021-11-20] MEDS ORDERED: heparin 1,000unit/ml 10ml vial 10 ML IV ONE (07:00)
--- NOTE | 2021-11-20 07:00 | NUR ---
Pt refused 06 VS
[2021-11-20] MEDS ORDERED: heparin 1,000 units/ml 10ml inj HE ONE ×2 (07:05)
[2021-11-20 07:34] LABS: BASOPHILS % (AUTO) 0.4 % (0-1); EOSINOPHILS # (AUTO) 0.1 X10'3 (0-0.9); EOSINOPHILS % (AUTO) 1.6 % (0-6); HEMATOCRIT 27.8 % (42.0-52.0); HEMOGLOBIN 9.4 g/dl (14.0-17.9); LYMPHOCYTES # (AUTO) 0.8 X10'3 (1.1-4.8); LYMPHOCYTES % (AUTO) 14.1 % (21-51); MEAN CORPUSCULAR HEMOGLOBIN 28.5 PG (27.0-31.0); MEAN CORPUSCULAR HGB CONC 33.7 g/dL (33.0-36.5); MEAN CORPUSCULAR VOLUME 84.6 FL (78-98); MONOCYTES # (AUTO) 0.7 X10'3 (0-0.9); MONOCYTES % (AUTO) 11.1 % (2-12); NEUTROPHILS # (AUTO) 4.4 X10'3 (1.8-7.7); NEUTROPHILS % (AUTO) 72.8 % (42-75); PLATELET COUNT 322 X10'3 (140-440); RED BLOOD COUNT 3.28 X10'6 (4.70-6.10); RED CELL DISTRIBUTION WIDTH 15.9 % (11.5-14.5)
[2021-11-20 07:57] LABS: ALANINE AMINOTRANSFERASE 19 U/L (12-78); ALBUMIN 2.9 G/DL (3.4-5.0); ALBUMIN/GLOBULIN RATIO 0.8 (1.1-1.5); ALKALINE PHOSPHATASE 18 IU/L (46-116); ANION GAP 12 (8-16); ASPARTATE AMINO TRANSFERASE 12 U/L (10-37); BILIRUBIN,TOTAL 0.3 MG/DL (0.1-1.0); BLOOD UREA NITROGEN 50 MG/DL (7-18); BUN/CREATININE RATIO 6.7 (5.4-32.0); CALCIUM 8.6 MG/DL (8.5-10.1); CHLORIDE 103 MMOL/L (99-107); CREATININE 7.41 MG/DL (0.60-1.10); GLUCOSE 100 MG/DL (70-104); MAGNESIUM 2.1 MG/DL (1.5-2.4); POTASSIUM 4.6 MMOL/L (3.5-5.1); SODIUM 140 MMOL/L (135-145); TOTAL CARBON DIOXIDE 24.9 MMOL/L (24-32); TOTAL PROTEIN 6.7 G/DL (6.4-8.2); eGFR 8 ML/MIN
[2021-11-20 08:00] VITALS: BP 138/85
[2021-11-20] MEDS: K and/or MAG REPLACEMENT MC SCH (08:00)
[2021-11-20] MEDS: HYDROcodone/acetaminophen 10/325mg tab PO PRN ×2 (08:06→15:45)
[2021-11-20] MEDS: carvedilol 6.25mg tablet PO SCH (08:06)
[2021-11-20] MEDS: amLODIPine 5mg tablet PO SCH (08:06)
[2021-11-20] MEDS: losartan 50mg tablet PO SCH (08:07)
[2021-11-20] MEDS: docusate sod 100mg capsule PO SCH (08:07)
[2021-11-20] MEDS: cloNIDine 0.1 mg tablet PO SCH ×2 (08:07→13:00)
[2021-11-20] MEDS: heparin, porcine 5000 units/ml vial SQ SCH (08:08)
--- NOTE | 2021-11-20 09:58 | NUR ---
Initial: Pt admit DX SUJATA, HTN, severe anemia, and hx CKD IV on HD from poorly controlled HTN per MD note. Pt PO ~73 avg renal diet up to 100% at times partially meeting estimated needs on HD. RD recommends Nepro ONS WL for further protein/kcals and scaled wt this admit on HD; MD notified. Noted LBM 5/2 receiving routine colace per EMR. RD d/w RN regarding additional bowel regimen as well as Phos check this admit if MD agreeable given constipation and HD. Will monitor for further nutrition intervention needs this admit. Rec: 1. continue renal diet 2. Nepro WL for additional protein/kcals on HD; pending MD verification in EMR 3. Monitor for PO trends; IF improves to consistent ~100% avg intake consider stopping Nepro ONS 4. routine bowel care; 4 days constipation 5. Phos level this admit w/ subsequent Phos binder per MD discretion; on HD 6. scaled wt this admit; subsequent wts w/ HD Addendum: 11/20/21 at [address] Amended: Links added.
[2021-11-20 10:00] VITALS: BP 154/74
[2021-11-20] MEDS ORDERED: NUT.TX.IMP.RENAL FXN,LAC-REDUC (Nepro) 237 ML VANILLA PO SCH (12:30)
--- NOTE | 2021-11-20 13:21 | NUR ---
fax received from [facility] regarding pt's chair time starting November 23 at 1100. Copy provided to pt and copy placed in chart.
[2021-11-20 14:00] VITALS: BP 126/75
--- NOTE | 2021-11-20 14:51 | NUR ---
PAGER ID: [phone] MESSAGE: Nadia O/N [phone] leigh Saleem [phone] HD complete, pt has chair time Tuesday at 1100. Ready for DC
[2021-11-20] MEDS ORDERED: LOSA50TA64 PO (15:24)
[2021-11-20 16:11] VITALS: BP_SYST 126
--- NOTE | 2021-11-20 17:04 | NUR ---
Pt discharged to home at 1650, with all belongings, in private vehicle. Discharge instructions and medications reviewed. 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 Pt has chair time of 1100, with instructions to show up at 1030 to sign paperwork. Education provided regarding checking blood pressure daily and the importance of following up with [facility] as scheduled. Pt instructed to return to ED if symptoms return. Pt states understanding and willingness to comply with discharge instructions. IV DC'd, cannula intact. Pt escorted to front lobby by PCT.
[2021-11-21 13:06] LABS: HBSAG SCREEN Negative (Negative); HEP A AB, IGM Negative (Negative)
== END 2021-11-20 16:55 | disposition home or self-care (01) | DRG 199 ==
LOC: ER 11:17 → ED HOLD 15:27 → ORTHO 4S 17:30
PROVIDERS: ADMIT Internal Medicine; ATTEND Internal Medicine
PROC: 5A1D70Z Performance of Urinary Filtration, Intermittent, Less than 6 Hours Per Day (ICD-10-PCS; principal; 2021-11-17)
PROC: 5A1D70Z Performance of Urinary Filtration, Intermittent, Less than 6 Hours Per Day (ICD-10-PCS; 2021-11-19)
PROC: 5A1D70Z Performance of Urinary Filtration, Intermittent, Less than 6 Hours Per Day (ICD-10-PCS; 2021-11-20)
DX: I16.1 Hypertensive emergency (principal); N17.9 Acute kidney failure, unspecified; I50.9 Heart failure, unspecified; D64.9 Anemia, unspecified; I13.2 Hypertensive heart and chronic kidney disease with heart failure and with stage 5 chronic kidney disease, or end stage renal disease; Z60.2 Problems related to living alone; F12.90 Cannabis use, unspecified, uncomplicated; F17.210 Nicotine dependence, cigarettes, uncomplicated; I25.10 Atherosclerotic heart disease of native coronary artery without angina pectoris; R31.9 Hematuria, unspecified; J44.9 Chronic obstructive pulmonary disease, unspecified; N18.6 End stage renal disease; Z56.0 Unemployment, unspecified; Z59.00 Homelessness unspecified; Z87.442 Personal history of urinary calculi; Z90.49 Acquired absence of other specified parts of digestive tract; Z82.49 Family history of ischemic heart disease and other diseases of the circulatory system; Z79.899 Other long term (current) drug therapy; Z79.82 Long term (current) use of aspirin; Z86.14 Personal history of Methicillin resistant Staphylococcus aureus infection; Z71.6 Tobacco abuse counseling; Z99.2 Dependence on renal dialysis; Z91.15 Patient's noncompliance with renal dialysis
CPT/HCPCS: 36415; 71045; 80053; 80061; 80074; 81001; 82728; 83036; 83540; 83550; 83735; 83880; 84132; 84484; 85025; 86705; 86706; 87081; 87340; 93005; 93975; 94760; 99285; G0257; G0378; J0360; J1644; Q4081